=== PATIENT | female | born 1930 | race Caucasian/White ===

== ENCOUNTER 2016-08-21 08:22 | Inpatient (IN) | payer OTHER ==
[2016-08-21] VITALS (8 sets, daily range): BP systolic 92–137; BP diastolic 47–90
[~2016-08-21] VITALS: Ht 172.7 cm; Wt 68.2 kg
--- NOTE | ~2016-08-21 | HC ---
[facility] [address] [address] CONSULTATION Name: FLORINA FIERRO Room #: 447-P ADM IN M.R.#: [id number] Admission: 08/21/16 Attend Phys: Geoffrey Braden MD Discharge: Date of : 30 Report #: [id number] THIS REPORT FOR: //name// CC: Sebastián Braden DATE OF SERVICE: 08/22/2016 REASON FOR CONSULTATION: Pneumonia. IMPRESSION: 1. Healthcare-associated pneumonia. 2. Question history of asthma/chronic obstructive pulmonary disease. 3. Congestive heart failure. 4. Chronic atrial fibrillation. 5. Polymyalgia rheumatica. 6. Anemia. 7. Hyperglycemia. 8. Elevated BNP. 9. MRSA positive ____. 10. PA systolic of 33 in 2015 with [id number]-eh-ptmlwz tricuspid regurg, diastolic dysfunction grade 2. 11. Hypothyroidism. 12. Chronic back pain with kyphoplasty. 13. Gastroesophageal reflux disease. PLAN: 1. I agree with current therapy. We will adjust antibiotics depending on or a repeat sputum culture. We will aggressively do pulmonary toilet. 2. At some point, we will need a repeat CT chest to look at tracheobronchial narrowing and mass and tail of pancreas and regarding adenopathy and mediastinum. HISTORY OF PRESENT ILLNESS: An 86-year-old female with chronic AFib, diastolic dysfunction, recently in hospital in April with right upper lobe infiltrate and bilateral effusions. The patient complained of cough, no sputum production, weakness. No hemoptysis, hematemesis or hematuria. PAST MEDICAL HISTORY: Includes hypertension, asthma. PAST SURGICAL HISTORY: Include breast cancer in 1990 and hip fracture in 1994. FAMILY HISTORY: Positive for Parkinson's. SOCIAL HISTORY: Positive tobacco, only smokes 7 cigarettes a day, quit greater than 20 years ago. Negative drugs of abuse. [facility] [address] [place] [address] CONSULTATION Name: FLORINA FIRERO Room #: 447-P [facility].#: [id number] Admission: 08/21/16 Attend Phys: Geoffrey Braden MD Discharge: Date of : 30 Report #: [id number] MEDICATIONS ON ADMISSION: Included nystatin, albuterol, warfarin, prednisone, hydrocodone, Protonix, levothyroxine, gabapentin, mirtazapine, citalopram, Lasix, spironolactone, guaifenesin. REVIEW OF SYSTEMS: Positive for chronic venous stasis, tear of right leg when she injured herself, hypertension, coronary artery disease, hypothyroidism, AFib, now off Coumadin because of anemia, polymyalgia rheumatica, right breast CA, cardiac stents, vertebroplasty in 1994, ____ bladder infections, history of D and C, history of C. diff in 2012 and 2013. PHYSICAL EXAMINATION: VITAL SIGNS: T-max 98.6, pulse 63, respirations 22, BP 125/66. HEENT: Trachea midline. Posterior pharynx, no thrush. LUNGS: Coarse bilateral. HEART: Irregular with murmur. ABDOMEN: Bowel sounds present. EXTREMITIES: Showed chronic venous stasis changes, trace edema. NEUROLOGIC: Alert and oriented. LABORATORY DATA: Chest x-ray today showed improvement, continued small effusions. Blood cultures negative thus far. Sputum, upper respiratory mak; MRSA nares positive. Vitamin D is 23.4, white count 2.8, hemoglobin ____, platelets 149. BUN 13, creatinine 1.1. We will follow closely with you. <ELECTRONICALLY SIGNED> By: Sabiha Prince MD 08/25/165 194 1357 Sabiha Prince MD /nt
--- NOTE | ~2016-08-21 | CNG ---
[facility] [place] [place] [address] CYTO-NONGYN REPORT PROCEDURE Name: FLORINA FIERRO Room #: 447-P ADM IN M.R.#: [id number] Admission: 08/21/16 Date of : 30 Discharge: Report #: [id number] Path Case #: [id number] CYTOPATHOLOGY REPORT COLLECTION DATE: 08/26/2016 RECEIVED DATE: 08/26/2016 SUBMITTING PHYS: Dr. Nito Coulter OTHER PHYS: Dr. Sebastián Braden CLINICAL HISTORY: Chronic anemia R/O Sherron SPECIMEN(S) RECEIVED: A.Brushing, esophageal * * * * * * * * * * * * FINAL DIAGNOSIS: Brushing, esophageal: - No malignant cells identified. -Benign glandular cells, reactive squamous cells and fungal organisms morphologically consistent with Sherron species are identified. - Properly controlled silver stain is positive for fungal organisms morphologically consistent with Sherron species. COMMENT: There is no evidence of goblet cell metaplasia, dysplasia or malignancy. (SHA:julian; d/t: 08/27/2016) PATHOLOGIST: Maxwell Perales M.D. REPORT ELECTRONICALLY SIGNED BY: Maxwell Perales M.D. DATE/TIME: 08/27/2016 12:38 * * * * * * * * * * * * GROSS PATHOLOGY: A. Brushing, esophageal: The specimen is labeled "Florina Fierro" and consists of a brushtip in saline. One ThinPrep slides prepared for pap stain and one ThinPrep slide prepared for silver stain. (kg 08/26/16) PICKING CREW SUPERVISOR(S): KADIE Mares(ASCP) INITIAL CPT CODE(S): A; 43415, 20825 Professional services performed by [facility] at [facility] [address] [place] [address] [facility] [address] [place] [address] CYTO-NONGYN REPORT PROCEDURE Name: FLORINA FIERRO ANN Room #: 447-P ADM IN M.R.#: [id number] Admission: 08/21/16 Date of : 30 Discharge: Report #: [id number] Path Case #: [id number] Technical services performed by [facility] at [address] [place] [address], [address], [place] [address]. [address] [place] [address] PHONE: [phone] DIRECTOR: Jeancarlos Wisdom M.D. * * * END OF REPORT * * *
--- NOTE | ~2016-08-21 | S ---
[facility] [place] [address] [place] [address] SURGICAL PATH RPT PROCEDURE Name: FLORINA FIERRO ANN Room #: 447-P ADM IN M.R.#: [id number] Admission: 08/21/16 Date of : 30 Discharge: Report #: [id number] Path Case #: [id number] PATHOLOGY REPORT COLLECTION DATE: 08/26/2016 RECEIVED DATE: 08/26/2016 SUBMITTING PHYS: Dr. Nito Coulter OTHER PHYS: Dr. Sebastián Braden SPECIMEN(S) RECEIVED: A.Small bowel bx * * * * * * * * * * * * FINAL DIAGNOSIS: "Small bowel bx," biopsy: - Small bowel/duodenal mucosa with minimal histologic alteration; no evidence of celiac sprue. (CLW:; d/t: 08/27/16) PATHOLOGIST: Sara Alba M.D. REPORT ELECTRONICALLY SIGNED BY: Sara Alba M.D. DATE/TIME: 08/27/2016 21:32 * * * * * * * * * * * * GROSS PATHOLOGY: Received in formalin labeled "Lu Edouard, small bowel biopsy," are 4 segments of monroe soft tissue measuring 0.7 x 0.5 x 0.3 cm in aggregate dimensions and ranging from 0.3 to 0.7 cm in maximum dimension. The specimen is submitted entirely in cassette A1. (KAH; 08/26/2016) CLINICAL HISTORY: Chronic anemia INITIAL CPT CODE(S): A; 54482 Professional services performed by [facility] at [facility] [address] [place] [address] Technical services performed by [facility] at [address] [place] [address]. [facility] [address] [place] [address] SURGICAL PATH RPT PROCEDURE Name: FLORINA FIERRO Room #: 447-P ADM IN M.R.#: [id number] Admission: 08/21/16 Date of : 30 Discharge: Report #: [id number] Path Case #: [id number] [address] PHONE: [phone] DIRECTOR: Jeancarlos Wisdom M.D. * * * END OF REPORT * * *
--- NOTE | ~2016-08-21 | S ---
[facility] [place] [address] SURGICAL PATH RPT PROCEDURE Name: FLORINA FIERRO Room #: 447-P DIS IN M.R.#: [id number] Admission: 08/21/16 Date of : 30 Discharge: 08/28/16 Report #: [id number] Path Case #: [id number] PATHOLOGY REPORT COLLECTION DATE: 08/28/2016 RECEIVED DATE: 08/28/2016 SUBMITTING PHYS: Dr. Carolyn Jama OTHER PHYS: Dr. Geoffrey Braden SPECIMEN(S) RECEIVED: A.Colon mass, hepatic flexure, distal ascending B.Rectal polyp * * * * * * * * * * * * FINAL DIAGNOSIS: A. Colon mass, hepatic flexure/distal ascending colon, endoscopic biopsy: - INVASIVE MODERATELY DIFFERENTIATED COLONIC ADENOCARCINOMA. B. Polyp, rectal polyp, endoscopic biopsy: - Hyperplastic polyp. - Negative for dysplasia. COMMENT: Part A. An MSI panel (for immunohistochemical stains MSH-2, MSH-6, MLH-1, and PMS-2) are ordered per [facility] Cancer Committee protocol on block A1. Co-review: Dr. Maxwell Perales. The findings of this case are telephoned to Ms Antonio, Dr. Jama's nurse, at 3:30 p.m., on 08/29/2016. (IUV:csd; d/t: 08/29/2016) PATHOLOGIST: Joellen Meza M.D. REPORT ELECTRONICALLY SIGNED BY: Joellen Meza M.D. DATE/TIME: 08/29/2016 16:49 * * * * * * * * * * * * GROSS PATHOLOGY: A. Received in formalin labeled "Florina Fierro, colon mass - hepatic flexure, distal ascending," are 6 segments of monroe soft tissue measuring 0.7 x 0.5 x 0.3 cm in aggregate dimensions and ranging from 0.3 to 0.6 cm in maximum dimension. The specimen is submitted entirely in cassette A1. B. Received in formalin labeled "Florina Fierro, rectal polyp," are 4 segments of monroe soft tissue measuring 0.5 x 0.4 x 0.2 cm in aggregate dimensions and ranging from 0.2 to 0.5 cm in maximum dimension. The specimen is submitted entirely in cassette B1. [address] [place] [address] SURGICAL PATH RPT PROCEDURE Name: FLORINA FIERRO ANN Room #: 447-P [facility] IN M.R.#: [id number] Admission: 08/21/16 Date of : 30 Discharge: 08/28/16 Report #: [id number] Path Case #: [id number] (KAH; 08/28/2016) CLINICAL HISTORY: Pre-op diagnosis: Chronic anemia Post-op diagnosis: Colon mass: Hepatic flexure, distal descending INITIAL CPT CODE(S): A; 75910, 04459, 50079, 49759, 28506 B; 92234 Professional services performed by [facility] at [address], [place] [address] Technical services performed by [facility] at [address] [place] [address], [address], [place] [address]. [facility] [address] [place] [address] PHONE: [phone] DIRECTOR: Jeancarlos Wisdom M.D. * * * END OF REPORT * * *
--- NOTE | ~2016-08-21 | CNG ---
[facility] [place] [address] [place] [address] CYTO-NONGYN REPORT PROCEDURE Name: FLORINA FIERRO Room #: 447-P ADM IN M.R.#: [id number] Admission: 08/21/16 Date of : 30 Discharge: Report #: [id number] Path Case #: [id number] CYTOPATHOLOGY REPORT COLLECTION DATE: 08/22/2016 RECEIVED DATE: 08/23/2016 SUBMITTING PHYS: Dr. Sabiha Prince OTHER PHYS: Dr. Geoffrey Braden CLINICAL HISTORY: Hypoxia, SOB, Weakness fatigue. SPECIMEN(S) RECEIVED: A.Sputum * * * * * * * * * * * * FINAL DIAGNOSIS: A. Sputum: - No malignant cells identified. Squamous cells, alveolar macrophages and yeast spores identified. (SHA:csd; d/t: 08/26/2016) PATHOLOGIST: Maxwell Perales M.D. REPORT ELECTRONICALLY SIGNED BY: Maxwell Perales M.D. DATE/TIME: 08/26/2016 10:22 * * * * * * * * * * * * GROSS PATHOLOGY: A. Sputum: The specimen is submitted unfixed, labeled "Florina Fierro". Received by the Cytology Department is less than one mL of clear colorless fluid. One ThinPrep slide was prepared. (clt 08.23.2016) WOOD SCIENCE PROFESSOR(S): KADIE David(ASCP) INITIAL CPT CODE(S): A; 57597 Professional services performed by [facility] at [facility] [address], [place] [address] Technical services performed by [facility] at [address] [place] [address]., [address], [place] [address]. [facility] [address] [place] [address], [facility] [address] [place], [place] [address] [place] [address] [place] [address] CYTO-NONGYN REPORT PROCEDURE Name: SRIJAMARI Room #: 447-P ADM IN M.R.#: [id number] Admission: 08/21/16 Date of : 30 Discharge: Report #: [id number] Path Case #: [id number] PHONE: [phone] DIRECTOR: Jeancarlos Wisdom M.D. * * * END OF REPORT * * *
--- NOTE | ~2016-08-21 | P ---
[facility] [place] [address] [place] [address] PROCEDURE REPORT Name: FLORINA FIERRO Room #: 447-P [facility] IN M.R.#: [id number] Admission: 08/21/16 Attend Phys: Geoffrey Braden MD Discharge: Date of : 30 Report #: [id number] THIS REPORT FOR: //name// CC: Cameron Braden BRIEF HISTORY: The patient is an 86-year-old woman who was admitted with pneumonia. She is found to be markedly anemic requiring transfusion. Ultimately, stools are found to be Hemoccult positive. She has evidence of iron deficiency anemia. PREOPERATIVE DIAGNOSIS: Iron deficiency anemia. POSTOPERATIVE DIAGNOSES: 1. Mild exudate throughout the esophagus, questionably Sherron esophagitis. 2. Small hiatus hernia, 1-2 cm. 3. Atrophic appearing gastric mucosa. MEDICATIONS: Deep sedation with propofol per anesthesia. SPECIMEN: 1. Biopsies of duodenum to rule out celiac disease. 2. Brushing esophagus, rule out candidiasis. ESTIMATED BLOOD LOSS: 3 mL. PROCEDURE: EGD with biopsy and brushing. FINDINGS: Prior to propofol sedation, procedure of upper endoscopy was discussed with the patient as well as potential risks, benefits, and complications. She indicates she understands and desires to proceed. With the patient in left lateral decubitus position, the Vivortei video endoscope was inserted in the cervical esophagus under direct vision without difficulty. Examination of this organ through its entire length revealed normal esophageal mucosa revealed intact esophageal mucosa. The mucosa was covered with a whitish exudate suggest a Sherron esophagitis and brushings were obtained. Scope was advanced in the stomach, which was examined on end view as well as retroflexed views. A very small 1-2 cm hiatus hernia was seen. Examination of the gastric mucosa revealed atrophic changes more prominent proximally than distally. However, no ulcers or mass lesions were seen. Pylorus was normal. Duodenal bulb was normal. Duodenal sweep was normal. Due iron deficiency anemia, multiple small bowel biopsies were obtained. At that point, the scope was slowly withdrawn and careful circumferential views were obtained. The patient tolerated the procedure well. [facility] [address] [place] [address] PROCEDURE REPORT Name: FLORINA FIERRO Room #: 447-P ADM IN M.R.#: [id number] Admission: 08/21/16 Attend Phys: Geoffrey Braden MD Discharge: Date of : 30 Report #: [id number] DISPOSITION: I do not see any bleeding lesions. I do not see an ulcer. The source of her anemia is not entirely clear. We will follow up on biopsies with regard to celiac disease. I did speak with the patient yesterday about the colonoscopy and yesterday she was reticent to pursue a colonoscopy and said she would consider after the upper endoscopy has been done since a specific diagnosis has not been identified, a colonoscopy may be a consideration, but we will again discuss with the patient. <ELECTRONICALLY SIGNED> By: Nito Coulter MD 08/27/16 1154 1445 0009 Nito Coulter MD /nt
--- NOTE | ~2016-08-21 | EKG ---
[address] [place] [address] ELECTROCARDIOGRAM REPORT Name: FLORINA FIERRO Room #: 447-P ADM IN M.R.#: [id number] Admission: 08/21/16 Attend Phys: Geoffrey Braden MD Discharge: Date of : 30 Report #: [id number] THIS REPORT FOR: //name// [facility] ED Test Date: 2016-08-21 Test Time: 09:40:29 Pat Name: FLORINA FIERRO Department: Room: [facility] Gender: F Vocational Evaluator: cahng : 1930 Requested By: Kacy Figueroa Order Number: [id number] MD: Jeff Atkinson Measurements Intervals [place] Rate: 91 P: FL: QRS: -17 QRSD: 117 T: 55 QT: 396 QTc: 488 Interpretive Statements Atrial fibrillation incomplete left bundle branch block no previous ECGs available for comparison Electronically Signed On 08-22-2016 7:51:02 CDT by Jeff Atkinson [email or web address] <ELECTRONICALLY SIGNED> By: Jeff Atkinson MD, [facility] 08/22/16 0751 0940 0940 Jeff Atkinson MD, FACC /EPI
--- NOTE | ~2016-08-21 | 2DMMODE ---
[facility] [place] [address] 2 D/M-MODE ECHOCARDIOGRAM Name: FLORINA FIERRO Room #: 447-P [facility] IN .R.#: [id number] Admission: 08/21/16 Attend Phys: Geoffrey Braden, Discharge: Date of : 30 Date of Service: 08/27/16 1222 Report #: [id number] THIS REPORT FOR: //name// APPROVED REPORT Study performed: 08/27/2016 10:33:58 EXAM: Comprehensive 2D, Doppler, and color-flow Echocardiogram Patient Location: Echo lab/Room 447 Blood Pressure: 112/59 mmHg HR: 97 bpm Rhythm: Atrial Fibrillation Other Information Study Quality: Adequate/low parasternal window. Indications Dyspnea Pulmonary Hypertension Hx: Afib, COPD, CHF, CAD, stent 2D Dimensions RVDd: 34.46 mm LVEF(%): 48.13 (>50%) IVSd: 12.45 (7-11mm) LVOT Diam: 18.87 (18-24mm) LVDd: 35.22 mm PWd: 10.94 (7-11mm) Ascending Aorta: 31.14 mm LVDs: 26.91 (25-40mm) Aortic Root: 29.02 mm Moreno's LVEF: 48.13 % Volumes Left Atrial Volume (Systole) Single Plane 4CH: 96.67 mL Single Plane 2CH: 118.48 mL LA ESV Index: 67.00 mL/m2 Aortic Valve AoV Peak Andreas.: 1.57 m/s AO Peak Gr.: 10.13 mmHg LV Max P.86 mmHg LV Max: 0.83 m/s Mitral Valve MV E Max Andreas.: 1.42 m/s [facility] [employer] [place] [address] 2 D/M-MODE ECHOCARDIOGRAM Name: FLORINA FIERRO ANN Room #: 447-P ADM IN .R.#: [id number] Admission: 08/21/16 Attend Phys: Geoffrey Braden, Discharge: Date of : 30 Date of Service: 08/27/16 1222 Report #: [id number] MV Decel. Time: 282.79 ms Pulmonary Valve PV Peak Andreas.: 0.89 m/s PV Peak Gr.: 3.27 mmHg Tricuspid Valve TR Peak Andreas.: 3.06 m/s RAP Estimate: 5.00 mmHg TR Peak Gr.: 37.52 mmHg RVSP: 43.00 mmHg Left Ventricle The left ventricle is normal size. There is normal LV segmental wall motion. Mild concentric left ventricular hypertrophy. Left ventricular systolic function is normal. LVEF is 50-55%. Diastology is indeterminate due to Afib. Right Ventricle The right ventricle is normal size. The right ventricular systolic function is normal. Atria Left atrium is severely dilated. Right atrium is severely dilated. Aortic Valve Aortic valve leaflets are moderately thickened and calcified. Mild aortic regurgitation. Mild aortic stenosis. Mitral Valve Severe mitral annular calcification. Moderately thickened leaflets. Mild mitral regurgitation. Mild mitral stenosis. Tricuspid Valve The tricuspid valve is normal in structure. There is moderate to severe tricuspid regurgitation. The right atrial pressure is estimated at 5 mmHg. There is moderate pulmonary hypertension with an estimated PAP 43mmHg. Pulmonic Valve The pulmonary valve is normal in structure. Mild pulmonic regurgitation. Great Vessels The aortic root is normal in size. Ascending aorta is not well visualized. IVC is normal in size and collapses >50% with inspiration. [facility] [address] [place] [address] 2 D/M-MODE ECHOCARDIOGRAM Name: FLORINA FIERRO ANN Room #: 447-P ADM IN M.R.#: [id number] Admission: 08/21/16 Attend Phys: Geoffrey Braden, Discharge: Date of : 30 Date of Service: 08/27/16 1222 Report #: [id number] Pericardium There is no pericardial effusion. <Conclusion> Left ventricular systolic function is normal. There is normal LV segmental wall motion. LVEF is 50-55%. Both atria are severely dilated. Aortic valve leaflets are moderately thickened and calcified. Mild aortic stenosis. Mild aortic regurgitation. Severe mitral annular calcification. Moderately thickened leaflets. Mild mitral regurgitation. Mild mitral stenosis. Pulmonary artery pressure of 50mmHg. There is no pericardial effusion. <ELECTRONICALLY SIGNED> By: Jeff Atkinson MD, FACC 08/27/161221 21 21 Jeff Atkinson MD, FACC /INF
[~2016-08-21 08:22] MED LIST: ACETAMINOPHEN325 M1 PO; ACIDOPHILUS1 EAC3 PO; ACTONEL PO; ADVAIR 500-501 EACH INH; ALDACTONE50 MG PO; ALPRAZOLAM 0.0.25 M1 PO; AMBIEN 5 MG TABL5 M1 PO; ANTACID MULTI-1 EACH PO; ANTACID500 MG PO; ATIVAN0.5 MG PO; AVELOX 400 MG400 MG PO; BENTYL20 MG PO; CALCIUM 500 +1 EAC5 PO; CALCIUM 600 +1 EAC1 PO; CALCIUM 600 +1 EAC5 PO; CARDIZEM CD120 MG PO; CELEXA10 MG PO; CELEXA20 MG PO; CEPHALEXIN 250250 MG PO; CIPROFLOXACIN500 M1 PO; CIPROFLOXACIN500 M3; CLEOCIN HCL150 MG PO; CLEOCIN HCL300 MG PO; COLACE100 MG PO; COUMADIN 2 MG TA2 M1 PO; COUMADIN 2.5MG2.5 M1 PO; COUMADIN 3 MG TA3 MG PO; COUMADIN 5 MG TA5 M1 PO; COUMADIN7.5 MG PO; DIAZEPAM 5 MG5 M1 PO; DIAZEPAM 5 MG5 MG; DILTIAZEM ER120 M1 PO; DOXYCYCLINE 10100 M1 PO; DULCOLAX5 MG PO; DURAGESIC1 EAC2 TRANSDERM; EQL CALCIUM PO; FENTANYL PA12 MCG/H1 TP; FENTANYL PA12 MCG/H1 TRANSDERM; FENTANYL PA12 MCG/HR TD; FENTANYL PA12 MCG/HR TRANSDERM; FENTANYL PA25 MCG/HR TOP; FENTANYL PA25 MCG/HR TP; FLORASTOR250 MG PO; FLOVENT HFA 1110 MCG INH; FUROSEMIDE 20 M20 M1 PO; FUROSEMIDE 40 M40 M1 PO; GABAPENTIN100 MG PO; GAVILAX17 GM PO; GLYCOLAX POWDER17 G1 PO; HYDROCHLOROTHIA25 M1 PO; HYDROCODON-ACE1 EAC5 PO; HYDROCODON-ACE1 EAC7 PO; HYDROCODONE-AP1 EAC6 PO; IBUPROFEN 600600 M1 PO; IRON325 PO; JANTOVEN2 MG PO; JANTOVEN2.5 MG PO; K-DUR 20 MEQ T20 MEQ PO; KLOR-CON 10 ER10 MEQ PO; KLOR-CON 1010 MEQ PO; LASIX 40 MG TAB40 M2 PO; LASIX 80 MG TAB80 MG PO; LEVALBUTER1.25 MG/0. INH; LEVAQUIN 500 M500 M1 PO; LEVAQUIN 500 M500 M2 PO; LEVAQUIN 750 M750 MG PO; LEVOTHYROXINE0.05 MG PO; LEVOXYL50 MCG PO; LISINOPRIL-HCT1 EACH PO; LORATIDINE 10 M10 M1 PO; LUTEIN PO; LUTEIN20 MG; MAG-AL PLUS SUS30 ML PO; MAGOX 400400 MG PO; MILK OF MA2400 MG/10 PO; MIRALAX17 GM PO; MIRALAX255 GM PO; MIRTAZAPINE15 M1 PO; MORPHINE SULFAT15 M3; MORPHINE SULFAT15 M5 PO; MORPHINE SULFATE TOP; MUCINEX TA600 MG/TA2 PO; MUCINEX600 MG PO; MUCUS RELIEF600 MG PO; MULTI-VITAMIN1 EAC5 PO; MULTIVITAMINS; MULTIVITAMINS1 EAC7 PO; NASACORT10.8 ML NS; NEURO-K50 MG PO; NORCO 10-325 T1 EACH PO; NYSTATIN 1100000 U/M SW&SWALLOW; OMEPRAZOLE40 MG PO; ONDANSETRON HCL4 M2 PO; ORAZINC220 MG PO; OSELB75 PO; OSTEO BI-FLEX1 EAC1 PO; OSTEO BI-FLEX1 EACH PO; OXYCODONE HCL 55 MG PO; PANTOPRAZOLE SO40 M1 PO; PANTOPRAZOLE SO40 MG PO; POTASSIUM20 PO; PREDNISOLONE 5 M5 M1 PO; PREDNISONE 10 M10 M1 PO; PREDNISONE 10 M10 MG PO; PREDNISONE 20 M20 MG PO; PREDNISONE 5 MG5 M1 PO; PROBIOTIC1 EAC1 PO; REMERON15 MG PO; ROBAXIN 750 MG750 M1 PO; SENNA PO; SENNA8.6 MG PO; SERTRALINE HCL25 M1 PO; SERTRALINE HCL50 MG PO; SUPER B-COMPLE1 EAC2 PO; TESSALON PERLE100 M1 PO; THERA-M CAPLET1 EAC1 PO; TRAMADOL 50 MG50 MG PO; TYLENOL EX-STR500 M2 PO; ULTRAM 50MG TAB50 MG PO; VITAMIN D 5050000 I1 PO; VITAMIN D1000 UNI1 PO; VITAMIN D31000 UNI2 PO; VITAMIN E400 UNIT PO; VITAMINC500 PO; VOLTAREN GEL 1100 G1 TOP; XOPENEX0.63 MG/3 INH; ZINC CHELATE50 MG PO; ZINC GLUCONATE PO; ZOFRAN4 MG PO
[2016-08-21] MEDS ORDERED: IRON325 PO (09:02)
[2016-08-21] MEDS ORDERED: POTASSIUM20 PO (09:06)
[2016-08-21 09:07] LABS: ABG SAMPLE TYPE ARTERIAL; BE(vivo) 1.7 mmol/L (-2 to +3); HCO3 25.6 mmol/L (22.0-26.0); LACTATE 1.26 mmol/L (0.5-2.0); O2(CT) 11.2 mL/dL (15.0-23.0); O2Hb 93.7 % (92.0-98.0); PCO2 37.1 mmHg (35.0-45.0); PO2 90.3 mmHg (80.0-100.0); pH 7.457 (7.360-7.450); sO2 97.3 % (92.0-98.0); tCO2 26.8 mmol/L (24.0-30.0)
[2016-08-21 09:08] LABS: STICK SITE R.RADIAL
[2016-08-21 09:09] LABS: ABSOLUTE NEUTROPHILS 3.1 thou/uL (1.4-8.2); BASOPHILS 0.8 % (0.0-2.0); EOSINOPHILS 1.4 % (0.0-3.0); HEMATOCRIT 22.5 % (37.0-47.0); HEMOGLOBIN 7.4 gm/dL (12.0-15.0); LYMPHOCYTES 19.7 % (24.0-44.0); MCH 31.7 pg (26.0-34.0); MCHC 32.9 g/dL (28.0-37.0); MCV 96.3 fL (80.0-100.0); MONOCYTES 9.4 % (1.0-8.0); PLATELET COUNT 190 thou/uL (150-400); POLYS 68.7 % (36.0-66.0); RBC 2.34 mil/uL (4.20-5.00); RDW 23.1 % (10.5-14.5); WBC 4.5 thou/uL (4.0-11.0)
[2016-08-21 09:15] LABS: MANUAL DIFF NO
[2016-08-21 09:17] LABS: URINE BILIRUBIN NEGATIVE (Negative); URINE BLOOD NEGATIVE (Negative); URINE COLOR YELLOW; URINE GLUCOSE-RANDOM* NEGATIVE (Negative); URINE KETONES 1+ (Negative); URINE NITRITE NEGATIVE (Negative); URINE PROTEIN (DIPSTICK) TRACE (Negative); URINE SPECIFIC GRAVITY 1.015 (1.003-1.035); URINE UROBILINOGEN 0.2 E.U./dl (0.2-1.0)
[2016-08-21 09:17] LABS: CALCIUM 9.3 mg/dL (8.5-10.1); POTASSIUM 4.2 mmol/L (3.5-5.1)
[2016-08-21 09:34] LABS: APTT 31.6 Seconds (24.5-32.8); INR 2.2; PROTIME 22.5 Seconds (9.3-11.4)
[2016-08-21 09:42] LABS: ANISOCYTOSIS 2+; HYPOCHROMASIA 2+; MICROCYTES 1+; PLATELET ESTIMATE NORMAL; POIKILOCYTOSIS 1+
[2016-08-21 11:09] LABS: ALBUMIN 2.4 g/dL (3.4-5.0); CALCIUM 9.3 mg/dL (8.5-10.1); POTASSIUM 4.4 mmol/L (3.5-5.1); TOTAL BILIRUBIN 0.5 mg/dL (<0.1-1.0); TOTAL PROTEIN 5.6 g/dL (6.4-8.2)
[2016-08-21 13:23] LABS: % SATURATION 14 % (20-39); IRON 39 ug/dL (50-170); TIBC 288 ug/dL (250-450); UIBC 249 ug/dL
[2016-08-21 13:50] LABS: FOLIC ACID 24.2 ng/mL (8.6-58.9)
[2016-08-22 03:33] VITALS: BP 116/68
[2016-08-22 06:33] LABS: HEMATOCRIT 21.8 % (37.0-47.0); HEMOGLOBIN 7.1 gm/dL (12.0-15.0); MCH 31.4 pg (26.0-34.0); MCHC 32.4 g/dL (28.0-37.0); MCV 97.1 fL (80.0-100.0); RBC 2.25 mil/uL (4.20-5.00); RDW 23.2 % (10.5-14.5); WBC 2.8 thou/uL (4.0-11.0)
[2016-08-22 06:57] LABS: CALCIUM 9.1 mg/dL (8.5-10.1); CREATININE 1.1 mg/dL (0.6-1.0); POTASSIUM 4.2 mmol/L (3.5-5.1)
[2016-08-22 08:00] VITALS: BP 134/57
[2016-08-22 12:00] VITALS: BP 119/49
[2016-08-22 16:00] VITALS: BP 125/66
[2016-08-22 19:48] VITALS: BP 134/48
[2016-08-23] VITALS (7 sets, daily range): BP systolic 115–146; BP diastolic 52–96
[2016-08-23 02:08] LABS: IgA 169 mg/dL (64-422); IgG 640 mg/dL (700-1600); IgM 162 mg/dL (26-217)
[2016-08-23 05:05] LABS: CALCIUM 8.7 mg/dL (8.5-10.1); CREATININE 1.1 mg/dL (0.6-1.0); POTASSIUM 4.1 mmol/L (3.5-5.1)
[2016-08-23 05:32] LABS: MCH 31.6 pg (26.0-34.0); MCV 98.6 fL (80.0-100.0); PLATELET COUNT 144 thou/uL (150-400); RBC 2.13 mil/uL (4.20-5.00); RDW 23.8 % (10.5-14.5); WBC 2.8 thou/uL (4.0-11.0)
[2016-08-23 05:57] LABS: MANUAL DIFF YES
[2016-08-23 05:58] LABS: HEMOGLOBIN 6.7 gm/dL (12.0-15.0)
[2016-08-23 08:25] LABS: ABSOLUTE NEUTROPHILS 2.5 thou/uL (1.4-8.2); ANISOCYTOSIS 3+; OVALOCYTES 1+; POLYCHROMASIA OCCASIONAL; TOTAL CELL COUNT 100
[2016-08-23 08:26] LABS: POIKILOCYTOSIS SLIGHT
[2016-08-24 03:52] LABS: HEMATOCRIT 28.9 % (37.0-47.0); MCH 31.9 pg (26.0-34.0); MCHC 33.4 g/dL (28.0-37.0); MCV 95.7 fL (80.0-100.0); RBC 3.02 mil/uL (4.20-5.00); RDW 22.2 % (10.5-14.5); WBC 3.9 thou/uL (4.0-11.0)
[2016-08-24 04:07] LABS: CALCIUM 8.9 mg/dL (8.5-10.1); CREATININE 1.1 mg/dL (0.6-1.0); POTASSIUM 4.8 mmol/L (3.5-5.1)
[2016-08-24 05:09] LABS: HEMOGLOBIN 9.7 gm/dL (12.0-15.0)
[2016-08-24 05:46] VITALS: BP 134/64
[2016-08-24 06:08] LABS: INFLUENZA B Negative (Negative); METAPNEUMOVIRUS Negative (Negative)
[2016-08-24 08:00] VITALS: BP 130/75
[2016-08-24 12:00] VITALS: BP 115/72
[2016-08-24 16:00] VITALS: BP 110/75
[2016-08-24 20:27] VITALS: BP 136/80
[2016-08-25 04:22] VITALS: BP 149/86
[2016-08-25 04:42] LABS: HEMATOCRIT 30.2 % (37.0-47.0); HEMOGLOBIN 9.8 gm/dL (12.0-15.0); MCH 31.7 pg (26.0-34.0); MCHC 32.5 g/dL (28.0-37.0); MCV 97.3 fL (80.0-100.0); RBC 3.1 mil/uL (4.20-5.00); RDW 22.3 % (10.5-14.5); WBC 5.4 thou/uL (4.0-11.0)
[2016-08-25 05:00] LABS: CALCIUM 9.5 mg/dL (8.5-10.1); POTASSIUM 5.6 mmol/L (3.5-5.1)
[2016-08-25 08:20] VITALS: BP 141/60
[2016-08-25 15:41] VITALS: BP 125/76
[2016-08-25 19:27] VITALS: BP 124/60
[2016-08-26] VITALS (7 sets, daily range): BP systolic 116–146; BP diastolic 56–116
[2016-08-26 05:32] LABS: HEMATOCRIT 30.2 % (37.0-47.0); HEMOGLOBIN 9.8 gm/dL (12.0-15.0); MCH 31.2 pg (26.0-34.0); MCHC 32.5 g/dL (28.0-37.0); MCV 96.2 fL (80.0-100.0); RBC 3.14 mil/uL (4.20-5.00); RDW 22.5 % (10.5-14.5); WBC 4.3 thou/uL (4.0-11.0)
[2016-08-26 05:37] LABS: INR 1.6; PROTIME 16.7 Seconds (9.3-11.4)
[2016-08-26 05:41] LABS: CALCIUM 9.7 mg/dL (8.5-10.1)
[2016-08-27 03:47] VITALS: BP 145/86
[2016-08-27 08:00] VITALS: BP 112/59
[2016-08-27 12:00] VITALS: BP 136/65
[2016-08-27 12:39] LABS: HEMATOCRIT 37.4 % (37.0-47.0); HEMOGLOBIN 11.7 gm/dL (12.0-15.0); MCH 30.7 pg (26.0-34.0); MCHC 31.4 g/dL (28.0-37.0); MCV 97.5 fL (80.0-100.0); RBC 3.83 mil/uL (4.20-5.00); RDW 22.4 % (10.5-14.5); WBC 6.6 thou/uL (4.0-11.0)
[2016-08-27 12:49] LABS: CALCIUM 9.7 mg/dL (8.5-10.1); CREATININE 1.1 mg/dL (0.6-1.0); POTASSIUM 4.5 mmol/L (3.5-5.1)
[2016-08-27 16:00] VITALS: BP 111/82
[2016-08-27 20:34] VITALS: BP 144/88
[2016-08-28 05:59] LABS: HEMATOCRIT 32.7 % (37.0-47.0); HEMOGLOBIN 10.6 gm/dL (12.0-15.0); MCH 30.7 pg (26.0-34.0); MCHC 32.5 g/dL (28.0-37.0); MCV 94.7 fL (80.0-100.0); RBC 3.45 mil/uL (4.20-5.00)
[2016-08-28 06:12] LABS: INR 1.3; PROTIME 13.9 Seconds (9.3-11.4)
[2016-08-28 06:28] LABS: ALBUMIN 2.5 g/dL (3.4-5.0); CALCIUM 9.4 mg/dL (8.5-10.1); POTASSIUM 3.6 mmol/L (3.5-5.1); TOTAL BILIRUBIN 0.7 mg/dL (<0.1-1.0); TOTAL PROTEIN 5.3 g/dL (6.4-8.2)
[2016-08-28 08:40] VITALS: BP 148/113
[2016-08-28 08:56] VITALS: BP 142/57
[2016-08-28] MEDS ORDERED: IPRATROPIU0.2 MG/1 M INH (14:50)
[2016-08-28] MEDS ORDERED: LEVALBUTER1.25 MG/0. INH (14:51)
[2016-08-28] MEDS ORDERED: LASIX 80 MG TAB80 MG PO (14:53)
[2016-08-28] MEDS ORDERED: PREDNISONE 10 M10 MG PO (14:53)
[2016-08-28] MEDS ORDERED: POTASSIUM20 PO (14:54)
[2016-08-28] MEDS ORDERED: LEVAQUIN 750 M750 MG PO (15:14)
[2016-08-28] MEDS ORDERED: DIFLUCAN100 MG PO (16:22)
[2016-08-28 16:34] VITALS: BP 106/54
== END 2016-08-28 18:05 | disposition home or self-care (01) | DRG 871 ==
LOC: ER 08:22 → EROBS 09:31 → 4S 09:31
PROVIDERS: Emergency Medicine; Internal Medicine; Internal Medicine Pulmonary Disease; Nurse Practitioner Adult Health
PROC: 30233N1 Transfusion of Nonautologous Red Blood Cells into Peripheral Vein, Percutaneous Approach (ICD-10-PCS; 2016-08-23)
PROC: 0DB98ZX Excision of Duodenum, Via Natural or Artificial Opening Endoscopic, Diagnostic (ICD-10-PCS; principal; 2016-08-26)
PROC: 0DB58ZX Excision of Esophagus, Via Natural or Artificial Opening Endoscopic, Diagnostic (ICD-10-PCS; principal; 2016-08-26)
PROC: 0DB88ZX Excision of Small Intestine, Via Natural or Artificial Opening Endoscopic, Diagnostic (ICD-10-PCS; principal; 2016-08-26)
PROC: 0DBP8ZX Excision of Rectum, Via Natural or Artificial Opening Endoscopic, Diagnostic (ICD-10-PCS; 2016-08-28)
PROC: 0DBK8ZX Excision of Ascending Colon, Via Natural or Artificial Opening Endoscopic, Diagnostic (ICD-10-PCS; 2016-08-28)
DX: A41.9 Sepsis, unspecified organism (principal); J18.9 Pneumonia, unspecified organism; J96.00 Acute respiratory failure, unspecified whether with hypoxia or hypercapnia; B37.81 Candidal esophagitis; I50.32 Chronic diastolic (congestive) heart failure; J44.9 Chronic obstructive pulmonary disease, unspecified; I48.0 Paroxysmal atrial fibrillation; I87.8 Other specified disorders of veins; Z66 Do not resuscitate; I25.10 Atherosclerotic heart disease of native coronary artery without angina pectoris; K21.9 Gastro-esophageal reflux disease without esophagitis; I11.0 Hypertensive heart disease with heart failure; M35.3 Polymyalgia rheumatica; R73.9 Hyperglycemia, unspecified; E03.9 Hypothyroidism, unspecified; G89.29 Other chronic pain; M54.9 Dorsalgia, unspecified; K44.9 Diaphragmatic hernia without obstruction or gangrene; K59.00 Constipation, unspecified; D50.9 Iron deficiency anemia, unspecified; Z98.42 Cataract extraction status, left eye; Z98.41 Cataract extraction status, right eye; Z90.49 Acquired absence of other specified parts of digestive tract; Z87.891 Personal history of nicotine dependence; Z85.3 Personal history of malignant neoplasm of breast; Z88.8 Allergy status to other drugs, medicaments and biological substances; Z81.8 Family history of other mental and behavioral disorders; Z95.5 Presence of coronary angioplasty implant and graft; Z90.11 Acquired absence of right breast and nipple
CPT/HCPCS: 10100; 62110; 62900; 70005

== ENCOUNTER → 2016-10-25 | Outpatient (CLI) | payer OTHER ==
[~2016-10-25] MED LIST changes: +DIFLUCAN100 MG PO; +IPRATROPIU0.2 MG/1 M INH
[2016-10-25 08:40] LABS: CREATININE 0.9 mg/dL (0.6-1.0)
== END ==
LOC: CAT 07:58
PROVIDERS: Specialist
DX: N28.1 Cyst of kidney, acquired (principal); K86.2 Cyst of pancreas; K57.90 Diverticulosis of intestine, part unspecified, without perforation or abscess without bleeding; Z85.038 Personal history of other malignant neoplasm of large intestine

== ENCOUNTER 2016-11-06 15:59 | Inpatient (IN) | payer OTHER ==
[~2016-11-06] VITALS: Ht 172.7 cm; Wt 63.2 kg
--- NOTE | ~2016-11-06 | HC ---
[facility] [place] [address] CONSULTATION Name: FLORINA FIERRO Room #: 422-P ADM IN M.R.#: [id number] Admission: 11/06/16 Attend Phys: Brown Best DO Discharge: Date of : 30 Report #: [id number] THIS REPORT FOR: //name// CC: Cameron Atkinson MD [facility] DATE OF SERVICE: 11/08/2016 REASON FOR CONSULTATION: Known colon cancer (hepatic flexure) HISTORY OF PRESENT ILLNESS: This is an 86-year-old female patient with significant cardiac disease including coronary artery disease, atrial fibrillation, diastolic heart failure and peripheral vascular disease, who was found to have colon cancer at her last admission this past August. She underwent a PET scan, which showed activity in the region of the ascending colon consistent with the colon cancer. Previous CT scan had shown pulmonary nodules that were concerning for metastatic disease. However, the PET scan showed no significant activity in these nodules. The nodules are more consistent with scarring. The patient has been admitted for preoperative clearance for potential surgery. I have been asked to see the patient for further potential surgery. PAST MEDICAL HISTORY: Includes coronary artery disease, paroxysmal atrial fibrillation, hypertension, COPD, venous stasis, hypothyroidism, previous left upper extremity and right lower extremity DVT, breast cancer, chronic back pain. PAST SURGICAL HISTORY: Includes mastectomy, tonsillectomy, adenoidectomy and vertebroplasty. She also underwent placement of an IVC filter during this hospitalization. MEDICATIONS: At home include pantoprazole, vitamin C, Synthroid, gabapentin, Mag-Ox, Remeron, Colace, Celexa, Cardizem, Flovent, vitamin D, Aldactone, MiraLax, Nasacort, guaifenesin, probiotics, iron, Xopenex, prednisone 10 mg p.o. daily, Lasix, potassium chloride, Diflucan and p.r.n. medications. ALLERGIES: ALBUTEROL. FAMILY HISTORY: Reviewed and noncontributory to this hospitalization. The patient has negative family history for colon cancer. SOCIAL HISTORY: The patient denies any use of tobacco, alcohol or illicit drugs. She quit smoking tobacco greater than 30 years ago. She currently lives in an assisted living facility. [address] [address] CONSULTATION Name: FLORINA FIERRO Room #: 422-P [facility] IN .R.#: [id number] Admission: 11/06/16 Attend Phys: Brown Best DO Discharge: Date of : 30 Report #: [id number] REVIEW OF SYSTEMS: As per history of present illness. In addition, GENERAL: The patient has had a nonquantifiable amount of weight loss over the past several months, according to her daughter. She denies fever or chills. HEENT: Denies changes in taste, vision, hearing, or smell. RESPIRATORY: Denies worsening shortness of breath, has a history of COPD. CARDIOVASCULAR: Denies chest pain or palpitations with a significant cardiac history. Most recent ejection fraction is 55%-60%. GASTROINTESTINAL: Denies abdominal pain, nausea, vomiting or diarrhea. Her bowels are functional. Her last bowel movement was 2 days ago. She denies bright blood per rectum. GENITOURINARY: Denies dysuria, urgency, increased urinary frequency or hematuria. MUSCULOSKELETAL: No myalgia, arthralgia or arthritis, but does complain of back pain. NEUROLOGIC: Denies headaches, numbness or tingling. PSYCHIATRIC: Denies depression, anxiety or suicidal ideations. SKIN AND INTEGUMENTARY: She has a history of skin cancer with skin grafting. HEMATOLOGIC: Has history of easy bleeding and bruising, on anticoagulation. She has also had an intracranial hemorrhage from previous fall likely secondary to the anticoagulation as well. She now has an IVC filter in place. PHYSICAL EXAMINATION: VITAL SIGNS: Temperature 98.8, blood pressure 126/43, pulse 77, respirations 18, height 5 feet 8 inches and weight 139 pounds. GENERAL: This is an 86-year-old female patient in no acute distress. HEENT: Atraumatic, normocephalic with moist mucosal membranes. She wears oxygen per nasal cannula and appears slightly dyspneic. NECK: Supple, no appreciable lymphadenopathy. Trachea is midline. CHEST: Clear bilaterally. No crackles or wheezes. CARDIOVASCULAR: Regular rate and rhythm. ABDOMEN: Soft, nontender, and nondistended. She has no palpable masses, no appreciable hernias. GENITOURINARY: Normal external female genitalia. EXTREMITIES: No clubbing or cyanosis. NEUROLOGIC: Cranial nerves 2-12 grossly intact. PSYCHIATRIC: Normal mood and affect. SKIN AND INTEGUMENTARY: No acute inflammatory changes, rashes or lesions are present. LABORATORY DATA: CBC on 11/06/2016 showed white blood cell count of 6.0, hemoglobin 8.5, hematocrit 25.6 and platelets 196 with 77% segmented neutrophils. A comprehensive metabolic profile shows sodium 136, potassium 3.8, chloride 101, CO2 30, BUN 18, creatinine 1.2 and glucose 160 with normal liver function tests. INR was 1.1 on 11/06. RADIOLOGIC STUDIES: Chest x-ray showed moderate COPD changes. PET CT findings [address] [address] CONSULTATION Name: FLORINA FIERRO Room #: 422-P ADM IN M.R.#: [id number] Admission: 11/06/16 Attend Phys: Brown Best DO Discharge: Date of : 30 Report #: [id number] are as noted above. Bilateral lower extremity venous duplex showed non-compressibility of the right popliteal vein consistent with DVT. The patient did have mild bilateral calf edema. IVC filter placement was undertaken on 11/07/2016. IMPRESSION: This is an 86-year-old female patient with multiple comorbidities as documented above including significant cardiac disease and pulmonary disease. 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 Her PET scan showed no evidence for metastatic disease. The patient would benefit from resection provided she is cleared from a medical standpoint. She is not entirely certain she would like to proceed with operative intervention, even if she is medically cleared. She will discuss further with her daughters. Further discussion will be undertaken with the patient if medical clearance is obtained. We did discuss the pathophysiology and natural history of colon cancer as well as treatment alternatives and briefly discussed the surgical options. The patient expressed understanding. We will consider surgery if medically cleared. I sincerely appreciate the opportunity to participate in the care of this patient and we will leave further recommendations and orders in the electronic medical record as appropriate. <ELECTRONICALLY SIGNED> By: Abdi Downing MD, FACS 11/09/16 0745 12 [id number] Abdi Downing MD, FACS /nt
--- NOTE | ~2016-11-06 | HC ---
[facility] [place] [address] CONSULTATION Name: FLORINA FIERRO Room #: 422-P ADM IN M.R.#: [id number] Admission: 11/06/16 Attend Phys: Brown Best DO Discharge: Date of : 30 Report #: [id number] THIS REPORT FOR: //name// CC: Cameron Atkinson MD [facility] Brown Best DO [facility] DATE OF SERVICE: 11/08/2016 DATE OF CONSULTATION: 11/08/2016. REFERRING PHYSICIAN: Brown Best DO REASON FOR CONSULTATION: Biopsy-proven hepatic flexure colon cancer. HISTORY OF PRESENT ILLNESS: The patient is an 86-year-old female patient with multiple medical comorbidities including significant coronary artery disease, atrial fibrillation, diastolic heart failure, peripheral vascular disease. She was diagnosed with invasive moderately differentiated colonic adenocarcinoma in August 2016. After the diagnosis, the patient underwent a PET scan which showed activity involving the hepatic flexure at the ascending colon consistent with the patient's colon cancer. lower thoracic and lumbar spine present. It should be noted that there is no abnormal pulmonary seen in the previous chest CT scan that showed no abnormal activity. The patient has been for potential surgery. PAST MEDICAL HISTORY: coronary artery disease, , hypertension, mastectomy, venous stasis, hypothyroidism, adenoidectomy, vertebroplasty. MEDICATIONS: Include , vitamin C, Synthroid, vitamin D Mag-Ox, Remeron, Colace, Celexa, Cardizem, Flovent, vitamin D, Mucinex, iron tablet, , Lasix, K-Dur, Diflucan. ALLERGIES: ALBUTEROL. FAMILY HISTORY: Reviewed and noncontributory to this hospitalization. SOCIAL HISTORY: The patient . No alcohol, no illicit drugs. . REVIEW OF SYSTEMS: history of present illness. PHYSICAL EXAMINATION: GENERAL: The patient [facility] [address] [facility] [place] [address] CONSULTATION Name: FLORINA FIERRO ANN Room #: 422-P [facility] IN M.R.#: [id number] Admission: 11/06/16 Attend Phys: Brown Best DO Discharge: Date of : 30 Report #: [id number] The patient denies suicidal ideation . VITAL SIGNS: blood pressure , pulse 77, respirations 18, DICTATION ENDS ABRUPTLY. By: 51 [id number] Abdi Downing MD, FACS /nt
--- NOTE | ~2016-11-06 | HC ---
[facility] [place] [address] CONSULTATION Name: FLORINA FIERRO Room #: 422-P [facility] IN M.R.#: [id number] Admission: 11/06/16 Attend Phys: Brown Best DO Discharge: 11/11/16 Date of : 30 Report #: [id number] THIS REPORT FOR: //name// CC: Brown Best [facility] DATE OF SERVICE: 11/08/2016 HISTORY OF PRESENT ILLNESS: The patient is an 86-year-old white female with a history of colon cancer and new right lower extremity DVT. She has undergone an IVC filter placed on 11/07/2016. She has had prior PET scanning, which shows the colon cancer in the hepatic flexure appearing to be localized. There is consideration for potential surgery. She does have a history of chronic back pain with three prior kyphoplasties and is essentially wheelchair-bound at her assisted living facility. We are seeing her in rehabilitation medicine consultation. PAST MEDICAL HISTORY: Includes C. diff, GERD, coronary artery disease with stenting, COPD, hypertension, left upper extremity DVT, off anticoagulation for AFib, chronic back pain. She had a prior intracerebral hemorrhage back in 2014 after a fall. MEDICATIONS: Please see the full medication listing. ALLERGIES: ALBUTEROL. FAMILY HISTORY: No history of cancer. SOCIAL HISTORY: Lives in an assisted living facility. Again, primarily has been wheelchair bound, although she was able to transfer herself and apparently was able to do a little bit of short distance ambulation. REVIEW OF SYSTEMS: Did not offer any current complaints of chest pain or shortness of breath. She does have some lower back pain, which is chronic. She notes she feels overall very weak and debilitated. She has pain in her lower back with some leg pain. She has discomfort of multiple extremities with multiple bruises. She did not complain of any swallowing problems or headache. PHYSICAL EXAMINATION: GENERAL: She is an 86-year-old white female in no obvious distress. VITAL SIGNS: Last recorded temperature 98.8, pulse 77, respirations 18, blood pressure 126/43. She is alert and oriented. HEENT: Appeared to be benign. NEUROLOGIC: Cranial nerves are grossly intact. Facies are symmetric. She has thin skin with some ecchymoses of both upper and lower extremities. She appears to have some venous stasis changes of bilateral lower extremities. [address] [address] CONSULTATION Name: FLORINA FIERRO Room #: 422-P [facility] IN M.R.#: [id number] Admission: 11/06/16 Attend Phys: Brown Best DO Discharge: 11/11/16 Date of : 30 Report #: [id number] range of motion of both upper extremities, strength grade 3+ to 4-/5. DTRs are trace to 1. Lower extremities, no focal calf swelling. She notes that her feet and legs are tender throughout. Strength is probably grade 3+/5. DTRs are decreased. She moves very slowly and needs assistance with basic functional mobility skills. ASSESSMENT: An 86-year-old white female with the following problem list: 1. Generalized weakness and debilitation. 2. New right lower extremity deep vein thrombosis, status post inferior vena cava filter, 11/07/2016. 3. Chronic low back pain with a history of multiple kyphoplasties. She is on a muscle relaxer. 4. Hepatic flexure colon cancer with oncology involved. Consideration for potential surgery. 5. Chronic obstructive pulmonary disease. 6. Hypertension. 7. Past history of an intracerebral hemorrhage. PLAN: Therapy evaluations are underway. She appears to be at a lower functional level right now, but we will follow along with you. <ELECTRONICALLY SIGNED> By: Brice Rankin MD 11/12/16 1826 [id number] Brice Rankin MD /nt
--- NOTE | ~2016-11-06 | S ---
[facility] [place] [address] SURGICAL PATH RPT PROCEDURE Name: FLORINA FIERRO Room #: 422-P ADM IN M.R.#: [id number] Admission: 11/06/16 Date of : 30 Discharge: Report #: [id number] Path Case #: [id number] PATHOLOGY REPORT COLLECTION DATE: 11/11/2016 RECEIVED DATE: 11/11/2016 SUBMITTING PHYS: Dr. Ruth Laughlin OTHER PHYS: Dr. Linden Rankin SPECIMEN(S) RECEIVED: A.Peripheral smear * * * * * * * * * * * * FINAL DIAGNOSIS: Peripheral blood smear: - Severe macrocytic anemia. (see comment) COMMENT: Overall, the peripheral blood has severe macrocytic anemia. WBC and platelet counts are within the normal reference ranges. The etiology of the findings is unclear based entirely on slide review. Potential causes of macrocytic anemia include vitamin B12 and/or folate deficiency, liver and/or thyroid disease, and primary bone marrow disorders. Correlation with clinical history and additional laboratory data is recommended. (SMITHAW:; d/t: 11/11/2016) PATHOLOGIST: Sara Alba M.D. REPORT ELECTRONICALLY SIGNED BY: Sara Alba M.D. DATE/TIME: 11/11/2016 16:26 * * * * * * * * * * * * MICROSCOPIC DESCRIPTION: CBC Data (11/10/16): WBC 4,100 /uL, RBC 2.14, hemoglobin 7.8 g/dL, hematocrit 23.7%, MCV 110.5 fL, MCH 36.3 pg, MCHC 32.8 g/dL, RDW 22.9%. Platelet count 174,000 /uL. Automated white blood cell differential: segs 68.8%, lymphs 20.4%, monos 8.1%, eos 1.7%, and 1.0% basos. CBC Data (11/11/16): WBC 5,300 /uL, RBC 2.13, hemoglobin 7.6 g/dL, hematocrit 23.6%, MCV 110.8 fL, MCH 35.6 pg, MCHC 32.1 g/dL, RDW 23.1%. Platelet count 180,000 /uL. Peripheral Blood Smear: [address] [address] SURGICAL PATH RPT PROCEDURE Name: FLORINA FIERRO Room #: 422-P [facility] IN M.R.#: [id number] Admission: 11/06/16 Date of : 30 Discharge: Report #: [id number] Path Case #: [id number] Cytomorphological examination of the Isabel's stained peripheral blood smear confirms the provided data. Red blood cells show severe macrocytic anemia with mild to moderate anisocytosis. No significant poikilocytosis is identified. No schistocytes or microspherocytes are seen. White blood cells are predominantly segmented neutrophils and are without significant dyspoiesis or significant left shift. Lymphocytes are predominantly small, round, and mature appearing with condensed chromatin and scant cytoplasm with admixed large granular lymphocytes. On scanning, no markedly atypical lymphoid cells are seen. Monocytes are mature. Platelets are adequate in number and mainly normal in morphology with rare larger platelets noted. GROSS PATHOLOGY: Received are 2 Isabel stained peripheral blood smears labeled, "Florina Fierro." CLINICAL HISTORY: 86 year-old woman with anemia. Morphologic review of the peripheral blood smear is requested by the patient's physician. INITIAL CPT CODE(S): A; [place] Professional services performed by [facility] at [facility] [address], [place] [address] Technical services performed by [facility] at [address] [place] [address], [address], [place] [address]. [facility] [address] [place] [address] PHONE: [phone] DIRECTOR: Jeancarlos Wisdom M.D. * * * END OF REPORT * * *
[2016-11-06 17:39] VITALS: BP 131/61
[2016-11-06 18:25] LABS: HEMATOCRIT 25.6 % (37.0-47.0); HEMOGLOBIN 8.5 gm/dL (12.0-15.0); MCH 36.6 pg (26.0-34.0); MCHC 33.3 g/dL (28.0-37.0); MCV 109.8 fL (80.0-100.0); PLATELET COUNT 196 thou/uL (150-400); RBC 2.33 mil/uL (4.20-5.00); RDW 23.9 % (10.5-14.5)
[2016-11-06 18:32] LABS: MANUAL DIFF YES
[2016-11-06 18:38] LABS: INR 1.1; PROTIME 11.3 Seconds (9.3-11.4)
[2016-11-06 18:40] LABS: ALBUMIN 2.8 g/dL (3.4-5.0); CALCIUM 9.5 mg/dL (8.5-10.1); CREATININE 1.2 mg/dL (0.6-1.0); POTASSIUM 3.8 mmol/L (3.5-5.1); TOTAL BILIRUBIN 0.4 mg/dL (<0.1-1.0)
[2016-11-06 18:59] LABS: TOTAL CELL COUNT 100
[2016-11-06 19:00] LABS: ANISOCYTOSIS 1+; HYPOCHROMASIA SLIGHT; MACROCYTES SLIGHT; MICROCYTES 1+
[2016-11-06 19:01] LABS: POLYCHROMASIA SLIGHT; SCHISTOCYTES RARE
[2016-11-07] VITALS (7 sets, daily range): BP systolic 107–132; BP diastolic 51–83
[2016-11-07 13:39] LABS: ABG SAMPLE TYPE ARTERIAL; BE(vivo) 4.5 mmol/L (-2 to +3); HCO3 28.5 mmol/L (22.0-26.0); LACTATE 1.67 mmol/L (0.5-2.0); O2(CT) 11.8 mL/dL (15.0-23.0); O2Hb 95.7 % (92.0-98.0); pH 7.471 (7.360-7.450); sO2 97.9 % (92.0-98.0); tCO2 29.8 mmol/L (24.0-30.0)
[2016-11-07 13:40] LABS: STICK SITE R.RADIAL
[2016-11-08 05:14] VITALS: BP 130/43
[2016-11-08 08:34] VITALS: BP 126/43
[2016-11-08 16:06] VITALS: BP 132/61
[2016-11-08 22:56] VITALS: BP 106/47
[2016-11-09 04:46] VITALS: BP 105/58
[2016-11-09 08:00] VITALS: BP 120/76
[2016-11-09 16:00] VITALS: BP 132/56
[2016-11-09 20:00] VITALS: BP 132/45
[2016-11-10 04:12] LABS: ABSOLUTE NEUTROPHILS 2.8 thou/uL (1.4-8.2); EOSINOPHILS 1.7 % (0.0-3.0); HEMATOCRIT 23.7 % (37.0-47.0); HEMOGLOBIN 7.8 gm/dL (12.0-15.0); LYMPHOCYTES 20.4 % (24.0-44.0); MCH 36.3 pg (26.0-34.0); MCHC 32.8 g/dL (28.0-37.0); MCV 110.5 fL (80.0-100.0); MONOCYTES 8.1 % (1.0-8.0); PLATELET COUNT 174 thou/uL (150-400); POLYS 68.8 % (36.0-66.0); RBC 2.14 mil/uL (4.20-5.00); RDW 22.9 % (10.5-14.5); WBC 4.1 thou/uL (4.0-11.0)
[2016-11-10 04:15] LABS: MANUAL DIFF NO
[2016-11-10 04:29] LABS: ALBUMIN 2.4 g/dL (3.4-5.0); CALCIUM 9.1 mg/dL (8.5-10.1); CREATININE 0.8 mg/dL (0.6-1.0); POTASSIUM 4.5 mmol/L (3.5-5.1); TOTAL BILIRUBIN 0.3 mg/dL (<0.1-1.0); TOTAL PROTEIN 5.5 g/dL (6.4-8.2)
[2016-11-10 04:47] VITALS: BP 142/89
[2016-11-10 08:32] VITALS: BP 130/80
[2016-11-10 16:28] VITALS: BP 110/78
[2016-11-10 20:04] VITALS: BP 122/70
[2016-11-11 04:03] VITALS: BP 125/70
[2016-11-11 07:45] VITALS: BP 96/67
[2016-11-11 08:04] VITALS: BP 96/67
[2016-11-11 08:59] LABS: ABSOLUTE RETIC COUNT 0.0507 10^6/uL; OBSERVED RETIC COUNT 2.38 % (0.6-2.6)
[2016-11-11] MEDS ORDERED: FENTANYL PA25 MCG/HR TRANSDERM (09:38)
[2016-11-11 10:10] LABS: FOLIC ACID 32.3 ng/mL (8.6-58.9)
[2016-11-11 15:22] LABS: URINE BILIRUBIN NEGATIVE (Negative); URINE BLOOD 1+ (Negative); URINE COLOR YELLOW; URINE GLUCOSE-RANDOM* NEGATIVE (Negative); URINE KETONES TRACE (Negative); URINE LEUKOCYTES-REFLEX 3+ (Negative); URINE PROTEIN (DIPSTICK) TRACE (Negative); URINE SPECIFIC GRAVITY 1.015 (1.003-1.035); URINE UROBILINOGEN 0.2 E.U./dl (0.2-1.0)
[2016-11-11 15:27] LABS: CASTS None Seen /LPF (None Seen); CRYSTALS None Seen /LPF (None Seen); SQUAMOUS 0-3 Few /LPF (0-3); URINE RBC None Seen /HPF (0-2); URINE WBC-REFLEX >25 Many /HPF (0-5)
[2016-11-11] MEDS ORDERED: CIPRO500 M1 PO (15:32)
[2016-11-13 16:09] LABS: A/G RATIO 1.1 (0.7-1.7); ALBUMIN 2.6 g/dL (2.9-4.4); ALPHA 1 0.3 g/dL (0.0-0.4); ALPHA 2 0.8 g/dL (0.4-1.0); BETA 0.7 g/dL (0.7-1.3); GAMMA 0.6 g/dL (0.4-1.8); M-SPIKE Not Observed g/dL (Not Observed)
== END 2016-11-11 18:24 | DRG 252 ==
LOC: 4E 15:59
PROVIDERS: Family Medicine; Internal Medicine Hematology & Oncology; Internal Medicine Pulmonary Disease; Nurse Practitioner Family
PROC: 06H03DZ Insertion of Intraluminal Device into Inferior Vena Cava, Percutaneous Approach (ICD-10-PCS; principal; 2016-11-07)
DX: I82.431 Acute embolism and thrombosis of right popliteal vein (principal); E43 Unspecified severe protein-calorie malnutrition; C18.3 Malignant neoplasm of hepatic flexure; I50.30 Unspecified diastolic (congestive) heart failure; K21.9 Gastro-esophageal reflux disease without esophagitis; Z66 Do not resuscitate; I25.10 Atherosclerotic heart disease of native coronary artery without angina pectoris; J44.9 Chronic obstructive pulmonary disease, unspecified; G89.29 Other chronic pain; M54.5 Low back pain; I73.9 Peripheral vascular disease, unspecified; I11.0 Hypertensive heart disease with heart failure; I48.0 Paroxysmal atrial fibrillation; E03.9 Hypothyroidism, unspecified; M35.3 Polymyalgia rheumatica; K59.00 Constipation, unspecified; D63.0 Anemia in neoplastic disease; D50.9 Iron deficiency anemia, unspecified; Z68.21 Body mass index [BMI] 21.0-21.9, adult; Z95.5 Presence of coronary angioplasty implant and graft; Z91.81 History of falling; Z99.3 Dependence on wheelchair; Z85.3 Personal history of malignant neoplasm of breast; Z79.899 Other long term (current) drug therapy; Z87.891 Personal history of nicotine dependence; Z85.828 Personal history of other malignant neoplasm of skin; Z87.01 Personal history of pneumonia (recurrent); Z86.14 Personal history of Methicillin resistant Staphylococcus aureus infection; Z90.11 Acquired absence of right breast and nipple; Z88.8 Allergy status to other drugs, medicaments and biological substances
CPT/HCPCS: 10183

== ENCOUNTER → 2016-11-06 | Outpatient (CLI) | payer OTHER | LOC: PET 10:33 | DX: I82.431 Acute embolism and thrombosis of right popliteal vein (principal); R91.8 Other nonspecific abnormal finding of lung field; R60.9 Edema, unspecified ==

== ENCOUNTER 2016-11-11 11:59 | Inpatient (IN) | payer OTHER ==
[~2016-11-11] VITALS: Ht 172.7 cm; Wt 63.3 kg
--- NOTE | ~2016-11-11 | H ---
[facility] [place] [address] HISTORY AND PHYSICAL Name: FLORINA FIERRO Room #: 511-P ADM IN M.R.#: [id number] Admission: 11/11/16 Attend Phys: Brice Rankin MD Discharge: Date of : 30 Report #: [id number] THIS REPORT FOR: //name// CC: Brice Rankin [facility] DATE OF SERVICE: 11/11/2016 HISTORY OF PRESENT ILLNESS: The patient is an 86-year-old white female with a history of colon cancer and a new right lower extremity DVT. She underwent an IVC filter placement on 11/07/2016. She has had prior PET scanning which showed the colon cancer in the hepatic flexure appearing to be localized. She also has a history of chronic back pain with 3 prior kyphoplasties and was essentially wheelchair bound at her assisted living facility. She was followed by Oncology and Surgery as well as Pulmonary Medicine. As far as the colon cancer, the plan is for some possible rehabilitation with later consideration for surgery. The tumor is pending genetics testing. Pulmonary Medicine has been involved with her COPD with continuing current bronchodilators and chest physiotherapy. She also has coronary artery disease and atrial fibrillation. She has medical complexity with generalized debilitation and has been admitted now for acute in-hospital inpatient rehabilitation. PAST MEDICAL HISTORY: Includes Clostridium difficile, GERD, coronary artery disease with stenting, COPD, hypertension, left upper extremity DVT. She is off anticoagulation for atrial fibrillation, chronic back pain. She had a prior intracerebral hemorrhage back in 2014 after a fall. MEDICATIONS: Please see the full medication listing. Each of these was individually reconciled upon admission. They include her over the counters, supplements, etc. ALLERGIES: ALBUTEROL. FAMILY HISTORY: No history of cancer. SOCIAL HISTORY: Lives in an assisted living facility. She has primarily been wheelchair bound, although she was able to transfer herself and apparently was able to do a little bit of short distance ambulation. REVIEW OF SYSTEMS: No complaints of chest pain, shortness of breath or abdominal discomfort. She has some chronic lower back pain. Complains of being overall weak and debilitated. She does have multiple bruises with some discomfort as expected. No other focal extremity pain complaints. No complaints of headache, bowel or bladder changes. PHYSICAL EXAMINATION: [facility] [address] [place] [address] HISTORY AND PHYSICAL Name: FLORINA FIERRO Room #: 511-P [facility] IN M.R.#: [id number] Admission: 11/11/16 Attend Phys: Brice Rankin MD Discharge: Date of : 30 Report #: [id number] GENERAL: An 86-year-old white female in no obvious distress. VITAL SIGNS: Last recorded temperature is 98, pulse 91, respirations 16, blood pressure 96/67. She is alert. HEENT: Appeared to be benign. CHEST: Some diffuse decreased breath sounds. CARDIOVASCULAR: Regular rate with extra beat. ABDOMEN: Bowel sounds positive, nontender. GENITOURINARY AND RECTAL: Deferred. HEENT: Appeared to be benign. NEUROLOGIC: Facies are symmetric. Cranial nerves are grossly intact. EXTREMITIES: She does have ecchymoses of both upper and lower extremities. Some venous stasis changes of both lower extremities. Functional range of motion with strength grade 3+ to 4-/5 both upper and lower extremities. DTRs are decreased. She needs assistance with basic functional mobility skills. She is transferring with mod assist and is taking a couple of steps. ASSESSMENT: An 86-year-old white female with the following problem list: 1. Medical complexity with generalized debilitation. 2. New right lower extremity deep venous thrombosis, status post IVC filter 11/07/2016. 3. Hepatic flexure colon cancer with Oncology and Surgery involved. They are following her for right now. 4. Chronic low back pain with a history of multiple kyphoplasties. 5. Chronic obstructive pulmonary disease. 6. Hypertension. 7. History of coronary artery disease. 8. History of atrial fibrillation. PLAN: The patient is admitted for acute in-hospital inpatient rehabilitation. From a postadmission physician evaluation perspective, there are no relevant changes since the preadmission screening. Please see the above review of prior and current medical and functional conditions and comorbidities. Please see the patient's previous and current functional status. As far as risk of complication, she has multiple medical comorbidities as noted above. Initial plan of care involves the interdisciplinary acute inpatient rehabilitation program with the goal of maximizing the patient's functional independence, so that she can hopefully return back to her prior living situation. Prognosis is reasonably good with estimated length of stay probably at least 10 days to 2 weeks and likely longer period. Potential barriers would include her multiple medical comorbidities and decreased functional status. The patient meets diagnostic criteria for an acute in-hospital inpatient rehabilitation stay. She meets medical necessity criteria and we will have the multiple physician consultants continue to follow while she is on the acute [address] [address] HISTORY AND PHYSICAL Name: FLORINA FIERRO Room #: 511-P ADM IN M.R.#: [id number] Admission: 11/11/16 Attend Phys: Brice Rankin MD Discharge: Date of : 30 Report #: [id number] rehab [facility]. She does have the appropriate tolerance for an acute rehab stay and has appropriate discharge goals back to the home setting. <ELECTRONICALLY SIGNED> By: Brice Rankin MD 11/12/16 1826 1856 [id number] Brice Rankin MD /nt
[~2016-11-11 11:59] MED LIST changes: +FENTANYL PA25 MCG/HR TRANSDERM
[2016-11-11] MEDS ORDERED: CIPRO500 M1 PO (15:32)
[2016-11-12 05:52] VITALS: BP 104/60
[2016-11-12 05:55] VITALS: BP 117/53
[2016-11-12 14:26] VITALS: BP 135/75
[2016-11-13 05:41] VITALS: BP 115/62
[2016-11-13 05:43] LABS: HEMATOCRIT 22.8 % (37.0-47.0); HEMOGLOBIN 7.6 gm/dL (12.0-15.0); MCHC 33.2 g/dL (28.0-37.0); MCV 108.5 fL (80.0-100.0); PLATELET COUNT 191 thou/uL (150-400); RDW 22.8 % (10.5-14.5); WBC 4.9 thou/uL (4.0-11.0)
[2016-11-13 05:46] LABS: MANUAL DIFF YES
[2016-11-13 05:54] LABS: CALCIUM 9.3 mg/dL (8.5-10.1); CREATININE 0.8 mg/dL (0.6-1.0); POTASSIUM 4.7 mmol/L (3.5-5.1)
[2016-11-13 06:07] LABS: ABSOLUTE NEUTROPHILS 4.1 thou/uL (1.4-8.2); ANISOCYTOSIS 3+; ATYPICAL LYMPHS 1 %; HYPOCHROMASIA SLIGHT; MACROCYTES 2+; MICROCYTES 1+; POLYCHROMASIA OCCASIONAL; TOTAL CELL COUNT 100
[2016-11-13 16:00] VITALS: BP 103/52
[2016-11-14] VITALS (9 sets, daily range): BP systolic 97–140; BP diastolic 41–77
[2016-11-14 04:14] LABS: HEMOGLOBIN 6.8 gm/dL (12.0-15.0)
[2016-11-14 04:16] LABS: HEMATOCRIT 20.3 % (37.0-47.0); MCH 36.4 pg (26.0-34.0); MCHC 33.7 g/dL (28.0-37.0); MCV 107.8 fL (80.0-100.0); RBC 1.88 mil/uL (4.20-5.00); RDW 22.5 % (10.5-14.5); WBC 4.8 thou/uL (4.0-11.0)
[2016-11-14 11:17] LABS: HEMATOCRIT 22.8 % (37.0-47.0); HEMOGLOBIN 7.5 gm/dL (12.0-15.0)
[2016-11-14 21:01] LABS: HEMATOCRIT 29.7 % (37.0-47.0)
[2016-11-14 21:02] LABS: HEMOGLOBIN 9.9 gm/dL (12.0-15.0)
[2016-11-20 10:07] LABS: A/G RATIO 1.2 (0.7-1.7); ALBUMIN 2.6 g/dL (2.9-4.4); ALPHA 1 0.3 g/dL (0.0-0.4); ALPHA 2 0.7 g/dL (0.4-1.0); BETA 0.7 g/dL (0.7-1.3); GAMMA 0.5 g/dL (0.4-1.8); M-SPIKE Not Observed g/dL (Not Observed)
== END 2016-11-14 22:55 | disposition short-term general hospital (02) | DRG 948 ==
PROVIDERS: Hospitalist; Internal Medicine Gastroenterology; Internal Medicine Hematology & Oncology; Nurse Practitioner
PROC: 30233N1 Transfusion of Nonautologous Red Blood Cells into Peripheral Vein, Percutaneous Approach (ICD-10-PCS; principal; 2016-11-14)
DX: R53.81 Other malaise (principal); N39.0 Urinary tract infection, site not specified; I82.491 Acute embolism and thrombosis of other specified deep vein of right lower extremity; K21.9 Gastro-esophageal reflux disease without esophagitis; I25.10 Atherosclerotic heart disease of native coronary artery without angina pectoris; J44.9 Chronic obstructive pulmonary disease, unspecified; I10 Essential (primary) hypertension; I48.91 Unspecified atrial fibrillation; D64.9 Anemia, unspecified; S91.301A Unspecified open wound, right foot, initial encounter; G89.29 Other chronic pain; Z66 Do not resuscitate; M54.5 Low back pain; Z87.81 Personal history of (healed) traumatic fracture; Z85.038 Personal history of other malignant neoplasm of large intestine; Z86.718 Personal history of other venous thrombosis and embolism; Z98.62 Peripheral vascular angioplasty status; Z88.8 Allergy status to other drugs, medicaments and biological substances; Z79.899 Other long term (current) drug therapy; Z90.10 Acquired absence of unspecified breast and nipple; Z79.01 Long term (current) use of anticoagulants
CPT/HCPCS: 10112

== ENCOUNTER 2016-11-20 11:24 | Inpatient (IN) | payer OTHER ==
[~2016-11-20] VITALS: Ht 172.7 cm; Wt 61.9 kg
[~2016-11-20 11:24] MED LIST changes: +CIPRO500 M1 PO
[2016-11-20] MEDS ORDERED: VANCO 1 GR1 GM/250 M IVPB (13:26)
[2016-11-20 15:19] VITALS: BP 129/69
[2016-11-21 03:55] VITALS: BP 170/72
[2016-11-21 03:59] LABS: HEMATOCRIT 24.8 % (37.0-47.0); HEMOGLOBIN 7.9 gm/dL (12.0-15.0); MCH 34.2 pg (26.0-34.0); MCHC 31.8 g/dL (28.0-37.0); MCV 107.5 fL (80.0-100.0); RBC 2.31 mil/uL (4.20-5.00); WBC 4.4 thou/uL (4.0-11.0)
[2016-11-21 04:13] LABS: CALCIUM 9.2 mg/dL (8.5-10.1); CREATININE 0.6 mg/dL (0.6-1.0); POTASSIUM 4.2 mmol/L (3.5-5.1)
[2016-11-21 08:00] VITALS: BP 117/67
[2016-11-21 16:00] VITALS: BP 112/45
[2016-11-22 04:01] VITALS: BP 110/57
[2016-11-22 06:42] LABS: HEMATOCRIT 23.9 % (37.0-47.0); HEMOGLOBIN 7.6 gm/dL (12.0-15.0); MCH 33.8 pg (26.0-34.0); MCHC 31.7 g/dL (28.0-37.0); MCV 106.6 fL (80.0-100.0); PLATELET COUNT 146 thou/uL (150-400); RBC 2.24 mil/uL (4.20-5.00); WBC 4.4 thou/uL (4.0-11.0)
[2016-11-22 06:54] LABS: CALCIUM 9.1 mg/dL (8.5-10.1); CREATININE 0.7 mg/dL (0.6-1.0); MAGNESIUM 2.2 mg/dL (1.8-2.4); POTASSIUM 3.8 mmol/L (3.5-5.1)
[2016-11-22 07:18] LABS: MANUAL DIFF YES
[2016-11-22 07:42] LABS: ABSOLUTE NEUTROPHILS 2.9 thou/uL (1.4-8.2); ANISOCYTOSIS 3+; MACROCYTES 2+; POLYCHROMASIA OCCASIONAL; TOTAL CELL COUNT 100
[2016-11-22 16:00] VITALS: BP 126/72
[2016-11-23 04:37] VITALS: BP 121/57
[2016-11-23 08:49] VITALS: BP 124/38
[2016-11-23 16:07] VITALS: BP 135/55
[2016-11-24 05:27] VITALS: BP 134/65
[2016-11-24 06:29] LABS: HEMATOCRIT 26.6 % (37.0-47.0); HEMOGLOBIN 8.7 gm/dL (12.0-15.0); MCH 34.9 pg (26.0-34.0); MCHC 32.9 g/dL (28.0-37.0); MCV 106.1 fL (80.0-100.0)
[2016-11-24 06:30] LABS: RBC 2.51 mil/uL (4.20-5.00); RDW 25.6 % (10.5-14.5); WBC 6.2 thou/uL (4.0-11.0)
[2016-11-24 09:07] VITALS: BP 135/46
[2016-11-25 06:35] VITALS: BP 128/52
[2016-11-25 15:19] VITALS: BP 129/45
[2016-11-26 06:00] VITALS: BP 120/50
[2016-11-26 07:16] LABS: ABSOLUTE NEUTROPHILS 3.6 thou/uL (1.4-8.2); BASOPHILS 1.4 % (0.0-2.0); EOSINOPHILS 1.2 % (0.0-3.0); HEMATOCRIT 25.4 % (37.0-47.0); HEMOGLOBIN 8.6 gm/dL (12.0-15.0); LYMPHOCYTES 15.8 % (24.0-44.0); MCH 36.6 pg (26.0-34.0); MCHC 33.9 g/dL (28.0-37.0); MCV 107.9 fL (80.0-100.0); MONOCYTES 9.8 % (1.0-8.0); PLATELET COUNT 197 thou/uL (150-400); POLYS 71.8 % (36.0-66.0); RBC 2.36 mil/uL (4.20-5.00); RDW 25.6 % (10.5-14.5); WBC 5.1 thou/uL (4.0-11.0)
[2016-11-26 07:25] LABS: MANUAL DIFF NO
[2016-11-26 07:28] LABS: ALBUMIN 2.9 g/dL (3.4-5.0); CALCIUM 9.3 mg/dL (8.5-10.1); CREATININE 1.1 mg/dL (0.6-1.0); MAGNESIUM 2.7 mg/dL (1.8-2.4); POTASSIUM 4.9 mmol/L (3.5-5.1); TOTAL BILIRUBIN 0.3 mg/dL (<0.1-1.0)
[2016-11-26 09:21] LABS: ANISOCYTOSIS 3+; MACROCYTES 2+; POLYCHROMASIA OCCASIONAL
[2016-11-26 16:08] VITALS: BP 143/65
[2016-11-27 05:36] VITALS: BP 86/56
[2016-11-27 08:00] VITALS: BP 128/63
[2016-11-27 16:00] VITALS: BP 122/76
[2016-11-28 03:51] LABS: CALCIUM 9.1 mg/dL (8.5-10.1); CREATININE 1.2 mg/dL (0.6-1.0); MAGNESIUM 2.5 mg/dL (1.8-2.4); POTASSIUM 4.7 mmol/L (3.5-5.1)
[2016-11-28 04:50] VITALS: BP 105/44
[2016-11-28 14:34] VITALS: BP 119/47
[2016-11-28] MEDS ORDERED: ALDACTONE50 MG PO (15:56)
[2016-11-28] MEDS ORDERED: FLOVENT HFA 1110 MCG INH (15:56)
[2016-11-28] MEDS ORDERED: MAGOX 400400 MG PO (15:56)
[2016-11-28] MEDS ORDERED: GABAPENTIN100 MG PO (15:56)
[2016-11-28] MEDS ORDERED: ENOXAPARIN40 MG/0.1 SUBQ (15:56)
[2016-11-28] MEDS ORDERED: CARDIZEM CD120 MG PO (15:56)
[2016-11-28] MEDS ORDERED: IRON325 PO (15:56)
[2016-11-28] MEDS ORDERED: REMERON15 MG PO (15:56)
[2016-11-28] MEDS ORDERED: NYSTATIN 1100000 U/M SW&SWALLOW (15:56)
[2016-11-28] MEDS ORDERED: COLACE100 MG PO (15:56)
[2016-11-28] MEDS ORDERED: MIRALAX17 GM PO (15:56)
[2016-11-28] MEDS ORDERED: PANTOPRAZOLE SO40 M1 PO (15:56)
[2016-11-28] MEDS ORDERED: BACTRIM DS TAB1 EACH PO (15:56)
[2016-11-28] MEDS ORDERED: CELEXA20 MG PO (15:56)
[2016-11-28] MEDS ORDERED: LASIX 80 MG TAB80 MG PO (15:56)
[2016-11-28] MEDS ORDERED: POTASSIUM20 PO (15:56)
[2016-11-28] MEDS ORDERED: PROBIOTIC1 EAC1 PO (15:56)
[2016-11-28 16:00] VITALS: BP 98/53
[2016-11-29 05:00] VITALS: BP 111/63
[2016-11-29 10:02] VITALS: BP 105/44
[2016-11-29] MEDS ORDERED: PREDNISONE 10 M10 MG PO (16:10)
== END 2016-11-29 16:20 | disposition home health service (06) | DRG 948 ==
PROVIDERS: Nurse Practitioner; Physical Medicine & Rehabilitation
DX: R53.81 Other malaise (principal); K92.2 Gastrointestinal hemorrhage, unspecified; N39.0 Urinary tract infection, site not specified; I82.622 Acute embolism and thrombosis of deep veins of left upper extremity; C18.9 Malignant neoplasm of colon, unspecified; E46 Unspecified protein-calorie malnutrition; J44.9 Chronic obstructive pulmonary disease, unspecified; I25.10 Atherosclerotic heart disease of native coronary artery without angina pectoris; I48.2 Chronic atrial fibrillation; I73.9 Peripheral vascular disease, unspecified; K21.9 Gastro-esophageal reflux disease without esophagitis; I11.0 Hypertensive heart disease with heart failure; I50.9 Heart failure, unspecified; E03.9 Hypothyroidism, unspecified; B96.4 Proteus (mirabilis) (morganii) as the cause of diseases classified elsewhere; Z66 Do not resuscitate; L98.499 Non-pressure chronic ulcer of skin of other sites with unspecified severity; L97.519 Non-pressure chronic ulcer of other part of right foot with unspecified severity; K59.00 Constipation, unspecified; E55.9 Vitamin D deficiency, unspecified; E83.41 Hypermagnesemia; Z68.20 Body mass index [BMI] 20.0-20.9, adult; Z85.828 Personal history of other malignant neoplasm of skin; Z95.5 Presence of coronary angioplasty implant and graft; Z87.81 Personal history of (healed) traumatic fracture; Z88.8 Allergy status to other drugs, medicaments and biological substances; Z98.42 Cataract extraction status, left eye; Z98.41 Cataract extraction status, right eye; Z90.49 Acquired absence of other specified parts of digestive tract; Z86.14 Personal history of Methicillin resistant Staphylococcus aureus infection; Z85.3 Personal history of malignant neoplasm of breast; Z90.11 Acquired absence of right breast and nipple
CPT/HCPCS: 10112

== ENCOUNTER 2016-12-10 08:17 | Inpatient (IN) | payer OTHER ==
[~2016-12-10] VITALS: Ht 172.7 cm; Wt 59.4 kg
--- NOTE | ~2016-12-10 | H ---
[facility] [place] [address] HISTORY AND PHYSICAL Name: FLORINA FIERRO Room #: 420-P ADM IN M.R.#: [id number] Admission: 12/10/16 Attend Phys: Geoffrey Braden MD Discharge: Date of : 30 Report #: [id number] THIS REPORT FOR: //name// CC: Geoffrey Loydjac [facility] DATE OF SERVICE: 12/12/2016 DATE OF SERVICE: 12/12/2016. CHIEF COMPLAINT: Left great toe ulceration. HISTORY OF PRESENT ILLNESS: This is an 86-year-old white female who I have known from care in the past usually for venous ulcerations with edema in her bilateral lower extremities. The patient states her lower extremities have actually done fairly well recently in regards to her edema. She has been keeping them wrapped and states she does have a small skin tear on her left pretibial region as well as another small tear on the right pretibial area. The patient denies any other associated ulcerations. The patient states he is currently admitted for a severe back pain. It should be noted that the patient does have a history of colon cancer. The patient also has a history of compression fractures in her back. While she is here, I have been asked to assist in the care of the wounds. The patient states the ulceration in her left great toe started within the past few weeks after she was told that she had an ingrown toenail and a pipe cleaner at her care facility supposedly did a resection of that and the wound has never totally healed. PAST MEDICAL HISTORY: Significant for chronic back pain, colon cancer, congestive heart failure, COPD, DVTs, venostasis, multiple skin tears and venous ulcerations. CURRENT MEDICATIONS: Multiple, I reviewed the patient's medication list. DRUG ALLERGIES: ALBUTEROL. SOCIAL HISTORY: The patient denies smoking or alcohol use. FAMILY HISTORY: Not pertinent to current medical condition. REVIEW OF SYSTEMS: CONSTITUTIONAL: The patient denies fevers or chills. NEUROLOGIC: The patient denies numbness, tingling, weakness in arms or legs, but does complain of overall generalized weakness. EYES: No complaints. ENT: No complaints. CARDIAC: The patient denies chest pain, palpitations, peripheral edema. [address] [address] HISTORY AND PHYSICAL Name: FLORINA FIERRO Room #: 420-P [facility] IN M.R.#: [id number] Admission: 12/10/16 Attend Phys: Geoffrey Braden MD Discharge: Date of : 30 Report #: [id number] RESPIRATORY: The patient denies cough or wheezes, but has chronic shortness of breath with oxygen dependency. GASTROINTESTINAL: The patient denies nausea, vomiting, abdominal pain. GENITOURINARY: The patient denies urgency or frequency. MUSCULOSKELETAL: The patient complains of severe back pain in her lumbar region. SKIN: There are 2 skin tears on the pretibial regions as well as an ulceration on her left great toe. PHYSICAL EXAMINATION: VITAL SIGNS: Stable with a T-max of 36.7. GENERAL: This is alert and oriented x 3, thin, chronically ill appearing white female who is in no acute distress. HEENT: Normocephalic, atraumatic. Mucous membranes are moist. Pupils are round. Sclerae white. Nasal cannula is in place. NECK: Without JVD or masses. BACK: Nontender. LUNGS: Slightly diminished breath sounds heard throughout with the scattered wheezing heard throughout. HEART: Irregularly irregular without obvious murmur. ABDOMEN: Soft, nontender. EXTREMITIES: The patient moves all extremities without difficulty. Distal pulses are intact, but faint in the lower extremities: Evaluation of lower extremities reveals trace to 1+ edema with 2 skin tears on the pretibial region, which are clean and granulating without signs of infection with minimal serosanguineous drainage without odor. Over the left great toe there is a dry and brownish eschar, which is exquisitely tender to touch. There are no signs of any drainage, erythema, warmth or signs of actual infection. All rest of the toes were intact. NEUROLOGIC: Cranial nerves 2-12 are grossly intact. Motor and sensory grossly intact. LABORATORY VALUES: White count 3.5, hemoglobin 9.1. Albumin is very slightly low at 3.1. IMPRESSION: 1. Chronic ulceration, left great toe. 2. Bilateral pretibial traumatic wounds. 3. History of venous insufficiency ____ edema, overall stable. 4. Severe back pain, unknown etiology in the patient with a history of multiple compression fractures. 5. Mild protein calorie malnutrition with albumin of 3.1. PLAN: At this time, we will place Betadine to the left great toe twice daily. We will use Optifoam Gentle over the bilateral pretibial skin tears, we will hold this in place with Kerlix. We will check arterial Dopplers in bilateral [facility] [address] [place] [address] HISTORY AND PHYSICAL Name: FLORINA FIERRO Room #: 420-P ADM IN M.R.#: [id number] Admission: 12/10/16 Attend Phys: Geoffrey Braden MD Discharge: Date of : 30 Report #: [id number] lower extremities to evaluate for arterial insufficiency. We will make sure we maximize the patient's protein supplementation for healing and the workup for her lumbar pain is in place with imaging has already been ordered. I appreciate the ability to consult. <ELECTRONICALLY SIGNED> By: Marcial Looney MD 12/13/16 1443 0807 1014 Marcial Looney MD /nt
--- NOTE | ~2016-12-10 | HC ---
[facility] [place] [address] CONSULTATION Name: FLORINA FIERRO Room #: 420-P ADM IN M.R.#: [id number] Admission: 12/10/16 Attend Phys: Geoffrey Braden MD Discharge: Date of : 30 Report #: [id number] THIS REPORT FOR: //name// [facility] HISTORY OF PRESENT ILLNESS: The patient is well known to me from her prior acute rehab hospitalization. The patient was on the rehab dixon with generalized debilitation. She had had a GI bleed, has colon cancer with conservative treatment, left great toe wound, history of MRSA, COPD, O2 dependent. She is typically wheelchair bound with short distance ambulation. Upon discharge from the rehab dixon, she had progressed nicely and was transferring with standby assistance and ambulating 100 feet with a front-wheeled walker with standby assistance. She ended up being readmitted with severe low back pain. MRI of the lumbar spine was undertaken and does show multiple prior compression fractures with kyphoplasties and osteoplasties at L5, L4, L1 as well as T12. There is some moderate edema around the osteoplasty site at T12. She does note some spasms with movement. We are seeing her in rehabilitation medicine consultation. PAST MEDICAL HISTORY: As noted above. History of COPD, prior smoker, chronic venous stasis ulcers, chronic AFib, polymyalgia rheumatica for which she has been on chronic corticosteroids, prior right breast CA with the right partial mastectomy, untreated colon cancer. She had a DVT left arm and behind her right knee. She has had an IVC filter, status post the right popliteal DVT 11/02. MEDICATIONS: Please see the full medication listing. SOCIAL HISTORY: She lives in an assisted living facility. As noted above, was premorbidly wheelchair bound with short distance ambulation. REVIEW OF SYSTEMS: Did not offer any current complaints of chest pain, shortness of breath or abdominal discomfort. She does have the lower extremity wounds, which have been a chronic problem with her venous stasis changes. She notes low back pain with some spasms when she tries to increase her movements. Denied any focal extremity pain complaints. PHYSICAL EXAMINATION: GENERAL: The patient is a pleasant 86-year-old white female in no obvious distress. VITAL SIGNS: Last recorded temperature 97.3, pulse 63, respirations 18, blood pressure 117/55. The patient is alert, oriented. HEENT: Appeared to be benign. NEUROLOGIC: Cranial nerves are grossly intact. Facies are symmetric. Nasal prong O2 is in place. She has functional range of motion of both upper extremities with strength a grade 3+ to 4-/5. DTRs are trace to 1. In her lower extremities, there is no focal calf swelling. She does have the chronic [address] [address] CONSULTATION Name: FLORINA FIERRO Room #: 420-P ADM IN M.R.#: [id number] Admission: 12/10/16 Attend Phys: Geoffrey Braden MD Discharge: Date of : 30 Report #: [id number] venous stasis changes and some of her wounds are dressed. There is no focal calf swelling. Her strength is probably a grade 3+ to 4-. Functionally, she has been mod assist with sit to stand and has problems with the spasm. ASSESSMENT: An 86-year-old white female previously known to me, readmitted to [facility] with the following problem list: 1. Severe low back pain with muscular spasms. History of multiple prior kyphoplasties and osteoplasties. She does have moderate edema around the prior osteoplasty site at T12. 2. Recent acute [address] [place] [address] inpatient rehabilitation stay for medical complexity with generalized debilitation. 3. Colon cancer, not being treated. 4. Chronic obstructive pulmonary disease. 5. Chronic venous stasis ulcers. 6. Polymyalgia rheumatica, on chronic steroids. 7. Past history of colitis. 8. Recent GI bleed during prior hospitalization. 9. Right lower extremity deep venous thrombosis, status post IVC filter, 11/07. 10. History of methicillin-resistant Staphylococcus aureus. 11. Atrial fibrillation. 12. Congestive heart failure. PLAN: I do not see that the patient has a new acute inpatient rehab diagnosis to warrant another [address] [place] [address] rehabilitation stay. Note that custodial facility options are being considered and would be in agreement with that plan. Thank you for asking us to assist in this patient's care. By: 1610 1753 Brice Rankin MD /nt
--- NOTE | ~2016-12-10 | EKG ---
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
[~2016-12-10 08:17] MED LIST changes: +BACTRIM DS TAB1 EACH PO; +ENOXAPARIN40 MG/0.1 SUBQ; +VANCO 1 GR1 GM/250 M IVPB
[2016-12-10 08:18] VITALS: BP 122/78
[2016-12-10] MEDS ORDERED: UNICOMPLEX M TA1 TA1 PO (08:42)
[2016-12-10] MEDS ORDERED: FLOVENT HFA 1110 MCG INH (08:43)
[2016-12-10] MEDS ORDERED: DULCOLAX5 MG PO (08:44)
[2016-12-10] MEDS ORDERED: ONDANSETRON HCL4 M2 PO (08:46)
[2016-12-10] MEDS ORDERED: TRAMADOL 50 MG50 MG PO (08:46)
[2016-12-10] MEDS ORDERED: ALDACTONE50 MG PO (08:47)
[2016-12-10] MEDS ORDERED: PREDNISONE 5 MG5 M1 PO (08:48)
[2016-12-10] MEDS ORDERED: ROBAXIN 750 MG750 M1 PO (08:51)
[2016-12-10] MEDS ORDERED: ASPIR 8181 MG PO (08:51)
[2016-12-10] MEDS ORDERED: LASIX 80 MG TAB80 MG PO (08:52)
[2016-12-10 09:38] LABS: BASOPHILS 0.4 % (0.0-2.0); HEMATOCRIT 27.1 % (37.0-47.0); HEMOGLOBIN 9.2 gm/dL (12.0-15.0); LYMPHOCYTES 11.7 % (24.0-44.0); MCH 35.1 pg (26.0-34.0); MCHC 33.9 g/dL (28.0-37.0); MCV 103.6 fL (80.0-100.0); PLATELET COUNT 179 thou/uL (150-400); POLYS 76.9 % (36.0-66.0); RBC 2.62 mil/uL (4.20-5.00); RDW 23.5 % (10.5-14.5); WBC 5.2 thou/uL (4.0-11.0)
[2016-12-10 09:40] LABS: MANUAL DIFF NO
[2016-12-10 09:45] LABS: CALCIUM 9.9 mg/dL (8.5-10.1)
[2016-12-10 09:48] LABS: POTASSIUM 4.9 mmol/L (3.5-5.1)
[2016-12-10 09:50] LABS: PROTIME 10.2 Seconds (9.3-11.4)
[2016-12-10 09:51] LABS: ALBUMIN 3.1 g/dL (3.4-5.0); TOTAL BILIRUBIN 0.4 mg/dL (<0.1-1.0); TOTAL PROTEIN 6.4 g/dL (6.4-8.2)
[2016-12-10 09:55] LABS: APTT 18.4 Seconds (24.5-32.8)
[2016-12-10 10:52] LABS: ANISOCYTOSIS 3+; PLATELET ESTIMATE NORMAL
[2016-12-10 10:53] LABS: MACROCYTES 2+; SCHISTOCYTES FEW
[2016-12-10 11:10] LABS: URINE BILIRUBIN NEGATIVE (Negative); URINE BLOOD NEGATIVE (Negative); URINE COLOR YELLOW; URINE GLUCOSE-RANDOM* NEGATIVE (Negative); URINE KETONES TRACE (Negative); URINE NITRITE NEGATIVE (Negative); URINE PROTEIN (DIPSTICK) TRACE (Negative); URINE SPECIFIC GRAVITY 1.025 (1.003-1.035); URINE UROBILINOGEN 0.2 E.U./dl (0.2-1.0)
[2016-12-10 11:21] LABS: SQUAMOUS 0-3 Few /LPF (0-3)
[2016-12-10 11:22] LABS: BACTERIA 1-9 Few /HPF (None Seen); CASTS None Seen /LPF (None Seen); CRYSTALS None Seen /LPF (None Seen); URINE RBC None Seen /HPF (0-2); URINE WBC 6-15 Few /HPF (0-5)
[2016-12-10 14:32] VITALS: BP 124/47
[2016-12-10 20:00] VITALS: BP 145/48
[2016-12-11 05:57] VITALS: BP 118/42
[2016-12-11 06:31] LABS: HEMATOCRIT 27.4 % (37.0-47.0); HEMOGLOBIN 9.1 gm/dL (12.0-15.0); MCHC 33.2 g/dL (28.0-37.0); MCV 105.7 fL (80.0-100.0); RBC 2.59 mil/uL (4.20-5.00); WBC 3.5 thou/uL (4.0-11.0)
[2016-12-11 06:48] LABS: CREATININE 0.9 mg/dL (0.6-1.0); POTASSIUM 4.8 mmol/L (3.5-5.1)
[2016-12-11 07:58] VITALS: BP 117/55
[2016-12-11 16:12] VITALS: BP 129/51
[2016-12-11 19:30] VITALS: BP 106/44
[2016-12-12 04:15] VITALS: BP 104/48
[2016-12-12 16:31] VITALS: BP 132/66
[2016-12-12 20:00] VITALS: BP 122/68
[2016-12-13 04:00] VITALS: BP 118/56
[2016-12-13 08:24] VITALS: BP 135/68
[2016-12-13 08:53] VITALS: BP 135/68
[2016-12-13] MEDS ORDERED: VOLTAREN GEL 1100 G1 TOP (10:04)
[2016-12-13] MEDS ORDERED: LIDODERM 5%1 PATC1 TRANSDERM (10:08)
== END 2016-12-13 15:30 | DRG 552 ==
LOC: ER 08:17 → EROBS 12:46 → 4E 12:46
PROVIDERS: Emergency Medicine; Internal Medicine
DX: M54.9 Dorsalgia, unspecified (principal); E44.1 Mild protein-calorie malnutrition; C18.9 Malignant neoplasm of colon, unspecified; Z68.1 Body mass index [BMI] 19.9 or less, adult; J44.9 Chronic obstructive pulmonary disease, unspecified; I25.10 Atherosclerotic heart disease of native coronary artery without angina pectoris; Z66 Do not resuscitate; E03.9 Hypothyroidism, unspecified; I48.2 Chronic atrial fibrillation; K21.9 Gastro-esophageal reflux disease without esophagitis; I73.9 Peripheral vascular disease, unspecified; I50.9 Heart failure, unspecified; I87.8 Other specified disorders of veins; M35.3 Polymyalgia rheumatica; G89.29 Other chronic pain; L97.529 Non-pressure chronic ulcer of other part of left foot with unspecified severity; I11.0 Hypertensive heart disease with heart failure; E55.9 Vitamin D deficiency, unspecified; D64.9 Anemia, unspecified; Z87.891 Personal history of nicotine dependence; Z85.3 Personal history of malignant neoplasm of breast; Z90.11 Acquired absence of right breast and nipple; Z95.5 Presence of coronary angioplasty implant and graft; Z90.49 Acquired absence of other specified parts of digestive tract; Z98.42 Cataract extraction status, left eye; Z98.41 Cataract extraction status, right eye; Z86.718 Personal history of other venous thrombosis and embolism; Z79.899 Other long term (current) drug therapy; Z79.52 Long term (current) use of systemic steroids
CPT/HCPCS: 10183

== ENCOUNTER 2017-01-14 08:00 | Emergency (ER) | payer OTHER ==
[~2017-01-14] VITALS: Ht 172.7 cm; Wt 55.8 kg
[~2017-01-14 08:00] MED LIST changes: +ASPIR 8181 MG PO; +LIDODERM 5%1 PATC1 TRANSDERM; +UNICOMPLEX M TA1 TA1 PO
[2017-01-14 08:50] LABS: HEMATOCRIT 30.6 % (37.0-47.0); HEMOGLOBIN 10.4 gm/dL (12.0-15.0); MCH 35.1 pg (26.0-34.0); MCV 103.3 fL (80.0-100.0); PLATELET COUNT 205 thou/uL (150-400); RBC 2.96 mil/uL (4.20-5.00); RDW 22.8 % (10.5-14.5); WBC 6.1 thou/uL (4.0-11.0)
[2017-01-14 08:58] LABS: CALCIUM 10.5 mg/dL (8.5-10.1); CREATININE 0.9 mg/dL (0.6-1.0); MANUAL DIFF YES
[2017-01-14 09:03] LABS: APTT 18.7 Seconds (24.5-32.8); PROTIME 10.3 Seconds (9.3-11.4)
[2017-01-14 09:04] LABS: ALBUMIN 3.1 g/dL (3.4-5.0); TOTAL BILIRUBIN 0.6 mg/dL (<0.1-1.0); TOTAL PROTEIN 6.3 g/dL (6.4-8.2)
[2017-01-14] MEDS ORDERED: HYDROCODON-ACE1 EAC5 PO (09:10)
[2017-01-14 09:34] LABS: ABSOLUTE NEUTROPHILS 4.3 thou/uL (1.4-8.2); ANISOCYTOSIS 1+; MICROCYTES 2+; PLATELET ESTIMATE NORMAL; TOTAL CELL COUNT 100
[2017-01-14] MEDS ORDERED: HYDROCORTISONE30 G9 RECTAL (11:34)
[2017-01-14 11:39] VITALS: BP 105/54
== END 2017-01-14 13:04 | disposition home or self-care (01) ==
LOC: ER 08:00
PROVIDERS: Emergency Medicine
DX: K56.41 Fecal impaction (principal); D64.9 Anemia, unspecified; G89.29 Other chronic pain; M54.9 Dorsalgia, unspecified; Z85.038 Personal history of other malignant neoplasm of large intestine; I11.0 Hypertensive heart disease with heart failure; I50.9 Heart failure, unspecified; I48.91 Unspecified atrial fibrillation; E03.9 Hypothyroidism, unspecified; K21.9 Gastro-esophageal reflux disease without esophagitis; J44.9 Chronic obstructive pulmonary disease, unspecified; Z95.5 Presence of coronary angioplasty implant and graft; Z86.718 Personal history of other venous thrombosis and embolism; Z85.3 Personal history of malignant neoplasm of breast; Z98.890 Other specified postprocedural states; Z87.891 Personal history of nicotine dependence; Z88.8 Allergy status to other drugs, medicaments and biological substances

== ENCOUNTER → 2017-02-19 | Outpatient (CLI) | payer OTHER ==
[~2017-02-19] MED LIST changes: +HYDROCORTISONE30 G9 RECTAL
== END ==
LOC: HYPER 01-21 07:23
DX: I70.245 Atherosclerosis of native arteries of left leg with ulceration of other part of foot (principal); L97.521 Non-pressure chronic ulcer of other part of left foot limited to breakdown of skin; I70.235 Atherosclerosis of native arteries of right leg with ulceration of other part of foot; L97.511 Non-pressure chronic ulcer of other part of right foot limited to breakdown of skin; I87.2 Venous insufficiency (chronic) (peripheral); I73.9 Peripheral vascular disease, unspecified; I11.0 Hypertensive heart disease with heart failure; I50.9 Heart failure, unspecified; K21.9 Gastro-esophageal reflux disease without esophagitis; E03.9 Hypothyroidism, unspecified; I48.91 Unspecified atrial fibrillation; F32.9 Major depressive disorder, single episode, unspecified; J44.9 Chronic obstructive pulmonary disease, unspecified

== ENCOUNTER 2017-02-27 16:29 | Inpatient (IN) | payer OTHER ==
[~2017-02-27] VITALS: Ht 172.7 cm; Wt 56.7 kg
--- NOTE | ~2017-02-27 | HC ---
[facility] [place] [address] CONSULTATION Name: FLORINA FIERRO Room #: 441-P [facility] IN M.R.#: [id number] Admission: 02/27/17 Attend Phys: Ramiro Kowalski MD Discharge: Date of : 30 Report #: [id number] THIS REPORT FOR: //name// CC: Ramiro Loydjac [facility] PALLIATIVE CARE CONSULTATION REASON FOR CONSULTATION: Palliative care consult. REQUESTING PHYSICIAN: Ramiro Kowalski MD Thank you for the consultation. As you know, the patient is an 86-year-old female who presented on 02/27 to [facility], admitted from outpatient medicine clinic, at which time patient was suspected of having left foot infection versus gangrene. She had previously been a resident at [facility] in [facility]. The patient additionally has a history of colon cancer and had elected not to have any kind of surgical intervention including laparoscopic, which could have progressed to an open procedure, which she was not willing to proceed with. The patient had previously discussed this with her family. At this time, the patient reports pain is well controlled. She reports no significant symptoms aside from new onset of diarrhea. She has pain in left lower extremity and abdominal pain at this current time. Reports the duration of the medication is adequate as well. PAST MEDICAL HISTORY: Significant for COPD, atrial fibrillation, hypertension, polymyalgia rheumatica, colon cancer, right lower extremity DVT history, peripheral artery disease, protein calorie malnutrition, coronary artery disease and history of Clostridium difficile. PAST SURGICAL HISTORY: Left lower extremity stent placed previously. Had angioplasty approximately 2 days prior with both anterior and posterior tibial arteries opened and prior tonsillectomy. She has had kyphoplasty of 2 lumbar segments, right partial mastectomy, coronary cath with stent placement in 2008, D and C times 3 and cataracts. SOCIAL HISTORY: A 30-year smoking history. Daughters, Beatriz and Kelsey are primarily in the area providing care for patient. The patient is DNR. MEDICATIONS PREVIOUS TO ADMISSION: Vitamin C, levothyroxine, vitamin D2, multivitamin, Flovent, Zofran, tramadol, Aldactone, prednisone, Robaxin, aspirin, Lasix and [place]. FAMILY HISTORY: Noncontributory. [facility] [address] [place] [address] CONSULTATION Name: FLORINA FIERRO Room #: 441-P [facility] IN .R.#: [id number] Admission: 02/27/17 Attend Phys: Ramiro Kowalski MD Discharge: Date of : 30 Report #: [id number] REVIEW OF SYSTEMS: GENERAL: The patient reports weight loss and decreased oral intake overall. HEENT: Denies visual changes. CARDIOVASCULAR: Denies chest pain, palpitations or significant edema. RESPIRATORY: Denies shortness of breath, cough or wheezing. GASTROINTESTINAL: Reports one episode of loose stools this afternoon, which is new on onset. She denies any melena. Does have some left upper quadrant abdominal pain with this. MUSCULOSKELETAL: Reports general weakness, which at this time is contributing to her decrease in activities of daily living. PHYSICAL EXAMINATION: VITAL SIGNS: Include temp 36.3, pulse 91, respirations 18, blood pressure 120/74 and oxygen 94% on room air. GENERAL: The patient is alert and oriented times 3. She appears generally cachectic. CARDIOVASCULAR: Regular rate and rhythm without murmur. LUNGS: Clear to auscultation bilaterally. No wheezes, rales or rhonchi. No acute distress. No accessory muscle use. ABDOMEN: Soft. Mild tenderness to palpation diffusely and diminished bowel sounds noted diffusely. MUSCULOSKELETAL: Diffuse weakness noted. NEUROLOGIC: Cranial nerves 2-12 appeared to be grossly intact. She does have some waxing and waning alertness concerns per her daughter, though at this present time her alertness is adequate. LABORATORIES: These include hemoglobin 8.4. MCV 101.3. Platelets 144. Potassium 2.3. Creatinine 0.7. ASSESSMENT AND PLAN: 1. Left lower extremity wound with possible gangrene. We discussed multiple options to patient at this time including shelter versus long-term care versus hospice inpatient program versus long-term care with hospice. Given her generalized weakness, I do not believe that she would be a good candidate for back to assisted living. We discussed this extensively. The patient continues to report that she wishes to be do not resuscitate status at this time. Further discussed advanced directive and both her and her daughter, Kelsey wish to pursue hospice inpatient program. Discussed this with family caseworker. Planning on arranging timing for this to be tomorrow. I spent approximately 45 minutes on advance care planning today. 2. Colon cancer. Again, as above, we discussed extensively her options. She does not want to be aggressive with any kind of surgical procedure to her foot at this time aside from what she has already had. No surgical procedure for her colon cancer. Wishes to pursue inpatient palliative program, despite the knowledge that this may be a step towards her getting a more permanent placement. [facility] [address] [place] [address] CONSULTATION Name: FLORINA FIERRO Room #: 441-P ADM IN M.R.#: [id number] Admission: 02/27/17 Attend Phys: Ramiro Kowalski MD Discharge: Date of : 30 Report #: [id number] 3. Anemia borderline, at this time towards severe. Management per primary team. I do not believe patient at this time would be amenable to further transfusion. 4. Hypokalemia. Management per primary team. 5. Stage 3 ulcer, left buttock. Management per wound care and primary team with goals towards palliative care. We will continue to follow with patient. <ELECTRONICALLY SIGNED> By: Mark Dunn DO 03/05/17 1357 2035 0445 Mark Dunn DO /nt
--- NOTE | ~2017-02-27 | HC ---
[facility] [place] [address] CONSULTATION Name: FLORINA FIERRO Room #: 441-P ADM IN M.R.#: [id number] Admission: 02/27/17 Attend Phys: Ramiro Kowalski MD Discharge: Date of : 30 Report #: [id number] THIS REPORT FOR: //name// CC: [facility] Sullivan [facility]ATION REASON FOR CONSULTATION: I was asked to evaluate concerning gangrene of the left foot. HISTORY OF PRESENT ILLNESS: The patient is an 86-year-old known from her previous hospitalization where she was diagnosed with peripheral vascular disease and ischemic wounds to her left first and second toes. She had MRSA growth from the wound. She was treated with vancomycin and finished with the course of Bactrim. Toe did not heal. She then developed this dry gangrene of her second toe. Hospitalized now for further treatment. PAST MEDICAL HISTORY, FAMILY HISTORY AND SOCIAL HISTORY: Unchanged from her previous consultation. ALLERGIES: ALBUTEROL. MEDICATIONS: As noted on her MAR including Zosyn. REVIEW OF SYSTEMS: No nausea, vomiting or diarrhea. She has had no cough or sputum production. She has significant amount of pain in the left foot. PHYSICAL EXAMINATION: VITAL SIGNS: She was afebrile, hemodynamically stable, alert and cooperative and pleasant, no acute distress. CHEST: Clear. HEART: Regular. ABDOMEN: Soft. EXTREMITIES: Pulses were palpable in the foot. The first and second toes on the left foot had dry gangrene. Toes 3, 4 and 5 were warm and appeared viable. LABORATORY STUDIES: Hemoglobin 9.5, WBC 10, platelet count 174,000. Chemistry pending. Previous ultrasound of the lower extremities on December 11 showed no evidence of stenosis in the lower extremities. 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 Previous methicillin-resistant Staphylococcus aureus infection. [facility] [address] [place] [address] CONSULTATION Name: FLORINA FIERRO Room #: 441-P ADM IN [facility]#: [id number] Admission: 02/27/17 Attend Phys: Ramiro Kowalski MD Discharge: Date of : 30 Report #: [id number] PLAN: Recommend continuing coverage for both gram-positive, MRSA and gram-negative organisms, pending surgical intervention. <ELECTRONICALLY SIGNED> By: Jorge Delatorre MD 02/28/17 0948 12 0309 Jorge Delatorre MD /nt
[2017-02-27 19:45] VITALS: BP 130/75
[2017-02-27 20:05] LABS: HEMATOCRIT 28.2 % (37.0-47.0); HEMOGLOBIN 9.5 gm/dL (12.0-15.0); MCH 34.2 pg (26.0-34.0); MCHC 33.6 g/dL (28.0-37.0); MCV 101.6 fL (80.0-100.0); RBC 2.78 mil/uL (4.20-5.00); RDW 22.5 % (10.5-14.5)
[2017-02-27 20:17] LABS: CALCIUM 9.6 mg/dL (8.5-10.1); CREATININE 1.3 mg/dL (0.6-1.0); POTASSIUM 4.2 mmol/L (3.5-5.1)
[2017-02-27 20:30] LABS: ALBUMIN 2.9 g/dL (3.4-5.0); TOTAL BILIRUBIN 0.8 mg/dL (<0.1-1.0); TOTAL PROTEIN 6.2 g/dL (6.4-8.2)
[2017-02-28 04:45] VITALS: BP 133/78
[2017-02-28 06:22] LABS: HEMATOCRIT 24.9 % (37.0-47.0); HEMOGLOBIN 8.5 gm/dL (12.0-15.0); MCH 34.3 pg (26.0-34.0); MCV 100.9 fL (80.0-100.0); RBC 2.47 mil/uL (4.20-5.00); RDW 22.3 % (10.5-14.5); WBC 7.1 thou/uL (4.0-11.0)
[2017-02-28 06:32] LABS: CALCIUM 9.4 mg/dL (8.5-10.1); CREATININE 1.1 mg/dL (0.6-1.0); POTASSIUM 3.7 mmol/L (3.5-5.1)
[2017-02-28 07:20] VITALS: BP 138/81
[2017-02-28 10:26] VITALS: BP 138/81
[2017-02-28 15:35] VITALS: BP 138/58
[2017-02-28 19:08] VITALS: BP 119/57
[2017-03-01 03:50] VITALS: BP 119/75
[2017-03-01 04:56] LABS: HEMATOCRIT 27.8 % (37.0-47.0); HEMOGLOBIN 9.4 gm/dL (12.0-15.0); MCH 34.3 pg (26.0-34.0); MCHC 33.9 g/dL (28.0-37.0); MCV 101.3 fL (80.0-100.0); RBC 2.75 mil/uL (4.20-5.00); RDW 22.3 % (10.5-14.5); WBC 8.7 thou/uL (4.0-11.0)
[2017-03-01 05:19] LABS: CALCIUM 9.5 mg/dL (8.5-10.1); CREATININE 0.9 mg/dL (0.6-1.0); POTASSIUM 3.3 mmol/L (3.5-5.1)
[2017-03-01 07:58] VITALS: BP 142/55
[2017-03-01 16:00] VITALS: BP 133/35
[2017-03-01 20:16] VITALS: BP 151/68
[2017-03-02 03:14] VITALS: BP 133/82
[2017-03-02 06:36] LABS: HEMATOCRIT 24.5 % (37.0-47.0); HEMOGLOBIN 8.4 gm/dL (12.0-15.0); MCH 34.6 pg (26.0-34.0); MCHC 34.1 g/dL (28.0-37.0); MCV 101.5 fL (80.0-100.0); RBC 2.42 mil/uL (4.20-5.00); RDW 22.4 % (10.5-14.5)
[2017-03-02 06:45] LABS: CALCIUM 9.1 mg/dL (8.5-10.1); CREATININE 0.8 mg/dL (0.6-1.0); POTASSIUM 3.1 mmol/L (3.5-5.1)
[2017-03-02 07:45] VITALS: BP 142/66
[2017-03-02 17:05] VITALS: BP 128/69
[2017-03-02 20:58] VITALS: BP 143/64
[2017-03-03 04:34] VITALS: BP 138/66
[2017-03-03 09:50] VITALS: BP 150/54
[2017-03-03 15:30] VITALS: BP 141/36
[2017-03-03 19:22] VITALS: BP 135/76
[2017-03-03 19:23] VITALS: BP 135/76
[2017-03-04 04:11] VITALS: BP 127/61
[2017-03-04 06:30] LABS: HEMATOCRIT 25.1 % (37.0-47.0); HEMOGLOBIN 8.4 gm/dL (12.0-15.0); MCH 33.8 pg (26.0-34.0); MCHC 33.4 g/dL (28.0-37.0); MCV 101.3 fL (80.0-100.0); RBC 2.48 mil/uL (4.20-5.00); RDW 21.4 % (10.5-14.5); WBC 5.5 thou/uL (4.0-11.0)
[2017-03-04 06:54] LABS: CALCIUM 8.5 mg/dL (8.5-10.1); CREATININE 0.7 mg/dL (0.6-1.0)
[2017-03-04 06:58] LABS: POTASSIUM 2.3 mmol/L (3.5-5.1)
[2017-03-04 08:04] VITALS: BP 120/74
[2017-03-04 16:48] VITALS: BP 137/65
[2017-03-04 19:27] VITALS: BP 150/63
[2017-03-05 04:47] VITALS: BP 147/67
[2017-03-05 06:05] LABS: HEMOGLOBIN 8.7 gm/dL (12.0-15.0); MCH 34.3 pg (26.0-34.0); MCHC 33.6 g/dL (28.0-37.0); MCV 102.1 fL (80.0-100.0); RBC 2.55 mil/uL (4.20-5.00); RDW 21.9 % (10.5-14.5); WBC 4.4 thou/uL (4.0-11.0)
[2017-03-05 06:20] LABS: CALCIUM 8.9 mg/dL (8.5-10.1); CREATININE 0.8 mg/dL (0.6-1.0); MAGNESIUM 1.5 mg/dL (1.8-2.4)
[2017-03-05 06:22] LABS: POTASSIUM 2.5 mmol/L (3.5-5.1)
[2017-03-05 08:00] VITALS: BP 133/67
[2017-03-05 15:15] VITALS: BP 139/83
[2017-03-05 20:00] VITALS: BP 144/62
[2017-03-05 20:26] VITALS: BP 144/62
[2017-03-06 04:27] VITALS: BP 106/57
[2017-03-06 08:00] VITALS: BP 149/73
[2017-03-06 09:32] VITALS: BP 149/73
[2017-03-06] MEDS ORDERED: CLOPIDOGREL75 MG PO (12:56)
[2017-03-06] MEDS ORDERED: PERCOCET 10-321 EACH PO (12:58)
== END 2017-03-06 13:10 | disposition hospice, home (50) | DRG 270 ==
LOC: 4S 16:29
PROVIDERS: Hospitalist; Nuclear Medicine Nuclear Cardiology; Nurse Practitioner Family
DX: I70.262 Atherosclerosis of native arteries of extremities with gangrene, left leg (principal); E43 Unspecified severe protein-calorie malnutrition; L89.323 Pressure ulcer of left buttock, stage 3; L89.313 Pressure ulcer of right buttock, stage 3; I50.30 Unspecified diastolic (congestive) heart failure; Z68.1 Body mass index [BMI] 19.9 or less, adult; C18.9 Malignant neoplasm of colon, unspecified; Z51.5 Encounter for palliative care; J44.9 Chronic obstructive pulmonary disease, unspecified; G89.29 Other chronic pain; M35.3 Polymyalgia rheumatica; I25.10 Atherosclerotic heart disease of native coronary artery without angina pectoris; D64.9 Anemia, unspecified; I48.2 Chronic atrial fibrillation; E03.9 Hypothyroidism, unspecified; L03.032 Cellulitis of left toe; E87.6 Hypokalemia; K21.9 Gastro-esophageal reflux disease without esophagitis; I11.0 Hypertensive heart disease with heart failure; Z85.038 Personal history of other malignant neoplasm of large intestine; Z86.718 Personal history of other venous thrombosis and embolism; Z95.820 Peripheral vascular angioplasty status with implants and grafts; Z95.5 Presence of coronary angioplasty implant and graft; Z87.891 Personal history of nicotine dependence; Z85.3 Personal history of malignant neoplasm of breast; Z87.81 Personal history of (healed) traumatic fracture; Z79.82 Long term (current) use of aspirin; Z79.51 Long term (current) use of inhaled steroids; Z86.14 Personal history of Methicillin resistant Staphylococcus aureus infection; Z90.710 Acquired absence of both cervix and uterus; Z79.52 Long term (current) use of systemic steroids; Z79.899 Other long term (current) drug therapy; Z88.8 Allergy status to other drugs, medicaments and biological substances
CPT/HCPCS: 10102